=== PATIENT | female | born 1960 ===

== ENCOUNTER 2022-06-16 13:41 | Emergency (ER) | payer OTHER, SELFPAY ==
--- NOTE | ~2022-06-16 | XR_ITS ---
EXAMINATION: XR FINGER, LEFT CLINICAL INFORMATION: Second digit laceration COMPARISON: None TECHNIQUE: Two views of the left index finger. PA view of the hand. FINDINGS: Soft tissue swelling of the distal second digit. The bones are normal. No fracture. Alignment is anatomic. Joint spaces are maintained. No foreign body. XR/XR finger LT min 2V IMPRESSION: Soft tissue swelling. No acute fractures or foreign body.
--- NOTE | 2022-06-16 14:09 | ED.WOUNDLAC ---
HPI - Wound/Laceration General Chief Complaint: Wound/Laceration <Vero Roca CNP - Last Filed: 06/16/22 14:12> Stated Complaint: l index finger laceration <Vero Roca CNP - Last Filed: 06/16/22 14:12> Time Seen by Provider: 06/16/22 14:53 <Vero Roca CNP - Last Filed: 06/16/22 14:12> Source: patient <ROSAMARIA Rodriguez - Last Filed: 06/16/22 15:10> Mode of arrival: ambulatory <ROSAMARIA Rodriguez Last Filed: 06/16/22 15:10> Limitations: no limitations <ROSAMARIA Rodriguez Last Filed: 06/16/22 15:10> History of Present Illness HPI narrative: 62-year-old female presents to the ER for evaluation of a laceration on her left index finger. Patient states just before coming into the hospital she was cutting the carpus of her cooked turkey when the knife slipped and she cut the lateral aspect of her left index finger. There was immediate bleeding and pain. She was able to apply direct pressure with cessation of the bleeding. She is not on anticoagulation. She is able to fully extend and flex the finger. She denies any numbness or tingling. She reports a throbbing pain right where the injury occurred. <ROSAMARIA Rodriguez - Last Filed: 06/16/22 15:10> Onset (ago): minute(s) <ROSAMARIA Rodriguez Last Filed: 06/16/22 15:10> Extremity Location: left: hand (Index finger) <ROSAMARIA Rodriguez Last Filed: 06/16/22 15:10> Place: home <ROSAMARIA Rodriguez Last Filed: 06/16/22 15:10> Patient tetanus UTD: Yes <ROSAMARIA Rodriguez Last Filed: 06/16/22 15:10> Context: accidental <ROSAMARIA Rodriguez Last Filed: 06/16/22 15:10> Associated symptoms: pain <ROSAMARIA Rodriguez Last Filed: 06/16/22 15:10> Treatments prior to arrival: bandage <ROSAMARIA Rodriguez - Last Filed: 06/16/22 15:10> Related Data Home Medications: Home Medications Medication Instructions Recorded Confirmed azelaic acid 15 % topical gel topical 10/30/21 10/30/21 lorazepam 0.5 mg tablet 0.5 mg PO DAILY PRN 05/10/22 sertraline 100 mg tablet 150 mg PO DAILY 05/10/22 <Vero Roca CNP - Last Filed: 06/16/22 14:12> Allergies/Adverse Reactions: Allergies Allergy/AdvReac Type Severity Reaction Status Date / Time No Known Allergies Allergy Verified 05/10/22 10:29 <Vero Roca CNP - Last Filed: 06/16/22 14:12> Review of Systems Review of Systems: Constitutional: No Fever, No Chills Cardiovascular: No Chest Pain, No SOB Gastrointestinal: No Nausea, No Vomiting Musculoskeletal: + joint pain, No Myalgias Skin: +Skin Lesions, No rash Neuro: No Weakness, No Numbness, No Dizziness, No Headache Psych: + Anxiety/Panic, No Depression Heme/Lymph: No Bruising <ROSAMARIA Rodriguez - Last Filed: 06/16/22 15:10> PMFSH Past Medical History Medical History: Medical History (Updated 06/16/22 @ 15:10 by ROSAMARIA Rodriguez) History of COVID-19 History of herpes zoster History of tetanus, diphtheria, and acellular pertussis booster vaccination (Tdap) Premature menopause <Vero Roca CNP - Last Filed: 06/16/22 14:12> Surgical History: Surgical History (Updated 05/10/22 @ 10:41 by Vannessa Crabtree MD) History of bunionectomy Hx of section Hx of colonoscopy Hx of tonsillectomy <Vero Roca CNP - Last Filed: 06/16/22 14:12> Family History Family History: Family History (Updated 05/10/22 @ 10:45 by Vannessa Crabtree MD) Father Hypertension Prostate cancer Parkinson disease Mother Hypertension Diabetes Breast cancer Maternal Aunt Breast cancer <Vero Roca CNP - Last Filed: 06/16/22 14:12> Social History Social History: Social History Housing: House Patient Tobacco Use Status: Former Tobacco user (38 years ago) e-Cigarette/Vaping Use: Never Used Current occupational status: employed Cognitive needs: No Hearing needs: No Vision needs: Yes <Vero Roca CNP - Last Filed: 06/16/22 14:12> Physical Exam Vital Signs: Vital Signs: Last Vital Signs Pulse 90 06/16/22 14:11 Resp 18 06/16/22 14:11 Pulse Ox 97 06/16/22 14:11 O2 Del Method 06/16/22 14:11 BMI result Body Mass Index 27.0 <Vero Roca CNP - Last Filed: 06/16/22 14:12> Vital Signs: Last Vital Signs Pulse 90 06/16/22 14:11 Resp 18 06/16/22 14:11 Pulse Ox 97 06/16/22 14:11 O2 Del Method 06/16/22 14:11 BMI result Body Mass Index 27.0 <ROSAMAIRA Rodriguez - Last Filed: 06/16/22 15:10> Appearance: Alert. Oriented X3. No acute distress. HEENT: normal inspection CVS: Normal heart rate and rhythm. Pulses normal. Respiratory: No respiratory distress. Skin: Skin warm and dry. Normal skin color. Normal skin turgor. No rashes. Extremities: Left index finger with a 1.5 cm linear, superficial diagonal laceration over the lateral aspect of the PIP. No active bleeding. Normal range of motion of both the D IP and PIP. Neurovascularly intact distally. Neuro: Oriented X 3. No motor deficit. No sensory deficit. <ROSAMARIA Rodriguez - Last Filed: 06/16/22 15:10> Course Course Course Narrative: RME: Today while cutting turkey she sliced left index finger with a kitchen knife, being labeled with pressure and gauze. Reports tetanus vaccine to be updated within the last 5 years. Denies anticoagulant usage. States she is able to bend the finger. PE: linear laceration to left 2nd digit, radial aspect, clean margins, bleeding controlled Plan: XR finger, laceration repair <Vero Roca CNP - Last Filed: 06/16/22 14:12> Reevaluation(s) Reevaluation #1: X-rays negative. Wound was irrigated and deep structures are intact. It is superficial, amenable to skin glue and Steri-Strips. <ROSAMARIA Rodirguez - Last Filed: 06/16/22 15:10> Reevaluation #2: Wound closed with Dermabond and Steri-Strips, see procedure note. Dry sterile dressing was applied the patient was counseled on wound care and signs and symptoms of infection that should prompt urgent re-evaluation. Stable for discharge home. <ROSAMARIA Rodriguez - Last Filed: 06/16/22 15:10> Procedures Laceration Laceration 1: Site: hand <ROSAMARIA Rodriguez - Last Filed: 06/16/22 15:10> Side (If applicable): left <ROSAMARIA Rodriguez - Last Filed: 06/16/22 15:10> Description: linear <ROSAMARIA Rodriguez - Last Filed: 06/16/22 15:10> Depth: simple, single layer <ROSAMARIA Rodriguez Last Filed: 06/16/22 15:10> Pre-repair: wound explored, irrigated extensively and deep structures intact <ROSAMARIA Rodriguez - Last Filed: 06/16/22 15:10> Skin layer closed with: other (Dermabond and Steri-Strips) <ROSAMARIA Rodriguez - Last Filed: 06/16/22 15:10> Discharge Plan Discharge Clinical Impression: Finger laceration <Vero Roca CNP - Last Filed: 06/16/22 14:12> Patient Disposition: Home, Self-Care <Vero Roca CNP - Last Filed: 06/16/22 14:12> Instructions: Finger Laceration (ED) <Vero Roca CNP - Last Filed: 06/16/22 14:12> Additional Instructions: Do not get wet for 24 hours, after that you can briefly wash with soap and water then pat dry. The Steri-Strips and Dermabond will come off on their own. Do not peel them off. Once that edges started for a just trim the edge. Keep wound clean and covered. Do not submerge in water. If you develop signs of infection including increased pain, swelling, redness or drainage of pus come back to the ER for further evaluation. <Vero Roca CNP - Last Filed: 06/16/22 14:12> Prescriptions: No Action azelaic acid 15 % gel topical sertraline 100 mg tablet 150 mg PO DAILY lorazepam 0.5 mg tablet 0.5 mg PO DAILY PRN <Vero Roca CNP - Last Filed: 06/16/22 14:12>
[2022-06-16 14:11] VITALS: PULSE 90; RESP 18; O2SAT 97; BMI 27.0
== END 2022-06-16 15:27 | disposition home or self-care (01) ==
PROVIDERS: Emergency Provider Emergency Medicine; PCP Internal Medicine
DX: S61.211A Laceration without foreign body of left index finger without damage to nail, initial encounter (principal); W26.0XXA Contact with knife, initial encounter; Y93.G1 Activity, food preparation and clean up; Y92.010 Kitchen of single-family (private) house as the place of occurrence of the external cause; Y99.9 Unspecified external cause status
CPT/HCPCS: 12001; 73140; 99283

== ENCOUNTER 2022-08-17 08:59 | Outpatient (REF) | payer OTHER, SELFPAY ==
[2022-08-17 11:16] LABS: MANUAL DIFF FLAG NO
[2022-08-17 11:23] LABS: Basophils Absolute Auto 0.1 X10*3/uL (0.0-0.2); Basophils Percent Auto 0.8 % (0-2); Eosinophils Absolute Auto 0.1 X10*3/uL (0.0-0.4); Eosinophils Percent Auto 2.4 % (0-4); Hematocrit 40.5 % (37.0-47.0); Hemoglobin 12.8 g/dl (12.0-16.0); Imm Gran Abs Auto 0.04 X10*3/uL (0.00-0.03); Imm Gran Pct Auto 0.7 % (0.0-0.4); Lymphocytes Absolute Auto 1.5 X10*3/uL (1.2-4.9); Lymphocytes Percent Auto 24.8 % (20-40); Mean Corpuscular HGB Conc 31.6 g/dl (31.0-35.0); Mean Corpuscular Hemoglobin 27.6 pg (27.0-33.0); Mean Corpuscular Volume 87.3 fL (80.0-98.0); Mean Platelet Volume 9.5 fL (9.4-12.3); Monocytes Absolute Auto 0.4 X10*3/uL (0.1-1.2); Monocytes Percent Auto 7.5 % (2-11); Neutrophils Absolute Auto 3.8 x10*3/uL (2.0-8.3); Neutrophils Percent Auto 63.8 % (45-73); Platelet Count 318 X10*3/uL (160-400); Red Blood Count 4.64 X10*6/uL (4.20-5.50); Red Cell Distribution Width 13.6 % (11.0-16.0); White Blood Count 5.9 X10*3/uL (4.8-10.8)
[2022-08-17 11:49] LABS: Alanine Aminotransferase 18 U/L (0-31); Anion Gap 12 (12-20); Aspartate Amino Transferase 21 U/L (5-31); Blood Urea Nitrogen 14 mg/dL (9-16); Calcium 9.5 mg/dL (8.4-10.2); Carbon Dioxide 28 mmol/L (22-29); Chloride 104 mmol/L (96-108); Cholesterol 246 mg/dL; Estimated Glomerular Filt Rate > 60; Glucose Fasting 90 mg/dL (60-99); HDL Cholesterol 54 mg/dL; LDL Cholesterol Calculated 173 mg/dl; Potassium 4.9 mmol/L (3.3-5.1); Sodium 139 mmol/L (135-145); Triglycerides 97 mg/dL
[2022-08-17 12:11] LABS: TSH reflex Free T4 1.88 uIU/mL (0.32-4.0); Vitamin D 25-OH Total 30.8 ng/mL (>30)
== END 2022-08-17 09:00 | disposition home or self-care (01) ==
LOC: HO.HMGCLDS 08:59
PROVIDERS: Visit Provider Internal Medicine
DX: Z00.01 Encounter for general adult medical examination with abnormal findings (principal); E28.319 Asymptomatic premature menopause; F32.A Depression, unspecified; F41.9 Anxiety disorder, unspecified
CPT/HCPCS: 36415; 80048; 80061; 82306; 84443; 84450; 84460; 85025

== ENCOUNTER 2023-02-25 11:06 | Outpatient (AMB) | payer OTHER, SELFPAY ==
--- NOTE | 2023-02-25 11:30 | A.OFFPSYCH_ITS ---
Intake Intake Visit Reasons: depression Allergies No Known Allergies Allergy (Verified 05/10/22 10:29) Medication List - Last Reconciled 02/25/23 by Fabio Singh MD azelaic acid 15% topical levomefolate calcium 7.5 mg PO DAILY lorazepam 0.5 mg PO DAILY PRN sertraline 200 mg PO DAILY HPI- Psychiatric Chief Complaint: depression HPI Narrative: THE PATIENT HAS HAD SOME INCREASE IN ANXIETY AND DEPRESSIVE SYMPTOMS. CAN BE MORE PREOCCUPIED BROODING AT TIMES. 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 She has florid about how much it is taking from her and then also feels she needs to step up to help support him and this is taking somewhat of a toll Past Psychiatric History: hx recurrent dysphoria past panic dx Mental Status Exam Mental Status Exam Patient Appearance: Well Grooomed Patient Orientation: Person, Place, Time and Situation Level of Consciousness: Awake and Appropriate Mood Description: Depressed and Blunted Affect Description: Appropriate and Constricted Patient Cognition Impaired: No Ability to Follow Directions: Good Speech Pattern: Clear Memory Description: Intact Hallucinations: None Delusions: Not Present Thought Process: Intact and Goal Oriented Thought Content: positive for Goal Oriented, positive for Preoccupation, negative for Suicidal Ideation or negative for Homicidal Ideation Depressive Symptoms: Increased Anxiety, Loss of Int. in Activity, Increased Fatigue, Loss of Energy and Difficulty Concentrating Judgement: Good Judgement and Insight: Patient with some ongoing depressive and anxiety symptoms Assessment and Plan Assessment & Plan (1) Generalized anxiety disorder: Status: Acute Code(s): F41.1 - Generalized anxiety disorder (2) Major depressive disorder, recurrent episode, mild with anxious distress: Status: Acute Code(s): F33.0 - Major depressive disorder, recurrent, mild Plan Patient has a history of recurrent depression and anxiety. She has been feeling more male long colic symptoms over the past week 10 days. She and her have been under significant stress dealing with transition of her [id number] from [place] living nearby now and having recently fallen and requiring orthopedic surgery. This has but more stress on the family particularly her and herself at times. Has diff difficult boundary relationship at times feeling overly criticized and [place]. We did discuss increasing sertraline to 100 mg from 150 mg reviewed risks benefits side effects decreased back to 150 if not tolerated discussed the addition of L methyl folate 7.5 mg daily as an augmentation strategy. Lorazepam p.r.n. for occasional panic anxiety relaxation techniques patient benefit from daily walk finding sanctuary in different spaces enjoys gardening Medications: New lorazepam 0.5 mg PO DAILY PRN 14 tabs 2RF anxiety Counseling and coordination of Care Details-Self Mgmt counseling: Issues related to managing difficult situation with her [id number] and its impact on her and her and triggers for depressive symptoms Medication management counseling: Effectiveness and Dosing range Diagnosis and Prognosis Counseling: Impact of diagnosis on life functions, Problematic behaviors secondary to diagnosis and Adequacy of current interventions Details: I spent [38] minutes reviewing the record, seeing the patient and documenting in the medical record. Counseling provided to the patient/caregiver as outlined below. Addressed patient/caregiver concerns regarding current medication regime including effective adherence. Addressed patient/caregiver concerns regarding diagnosis and prognosis including accuracy of diagnosis, prognosis over time, impact of diagnosis. Addressed patient/caregiver concerns regarding impact of recent stressors. [facility] Medical History (Updated 03/25/23 @ 14:10 by Fabio Singh MD) Generalized anxiety disorder History of COVID-19 History of herpes zoster History of tetanus, diphtheria, and acellular pertussis booster vaccination (Tdap) Premature menopause Surgical History (Updated 05/10/22 @ 10:41 by Vannessa Crabtree MD) History of bunionectomy Hx of section Hx of colonoscopy Hx of tonsillectomy Family History (Updated 05/10/22 @ 10:45 by Vannessa Crabtree MD) Father Hypertension Prostate cancer Parkinson disease Mother Hypertension Diabetes Breast cancer Maternal Aunt Breast cancer Social History Housing: House Patient Tobacco Use Status: Former Tobacco user (38 years ago) e-Cigarette/Vaping Use: Never Used Current occupational status: employed Cognitive needs: No Hearing needs: No Vision needs: Yes Coding Level of Care Code Est Pt Level 3 (82412) Therapy 30m w/E&M (46721) Diagnoses Generalized anxiety disorder F41.1 Major depressive disorder, recurrent episode, mild with anxious distress F33.0
== END 2023-02-25 12:13 | disposition home or self-care (01) ==
LOC: HO.HOP 11:06
PROVIDERS: PCP Internal Medicine; Visit Provider Psychiatry & Neurology Psychiatry
DX: F41.1 Generalized anxiety disorder (principal); F33.0 Major depressive disorder, recurrent, mild
CPT/HCPCS: 90833; 99213

== ENCOUNTER → 2023-02-25 11:06 | Outpatient (BNVA) | payer OTHER, SELFPAY | PROVIDERS: PCP Internal Medicine; Visit Provider Psychiatry & Neurology Psychiatry ==

== ENCOUNTER 2023-04-17 14:37 | Outpatient (AMB) | payer OTHER, SELFPAY ==
--- NOTE | 2023-04-17 13:00 | MHC.OFFVISPS ---
Intake Intake Visit Reasons: depression Allergies No Known Allergies Allergy (Verified 05/10/22 10:29) Medication List - Last Reconciled 04/17/23 by Fabio Singh MD azelaic acid 15% topical lorazepam 0.5 mg PO DAILY PRN sertraline 200 mg (2 x 100 mg) PO DAILY 90 days HPI- Psychiatric Chief Complaint: depression HPI Narrative: The patient is feeling significantly better generally much more like herself. More assertive full range of motion back working Has been quite stable on sertraline 200 mg did not feel L methyl folate was helpful managing better with her and [id number] Past Psychiatric History: hx recurrent dysphoria past panic dx Mental Status Exam Mental Status Exam Narrative: Mental Status Exam Narrative: Appearance: Casually dressed Behavior: Cooperative appropriate psychomotor: Within normal limits Speech: Normal volume and prosody focused on feeling and powered Thought proccess logical and goal-directed Thought content: Future oriented no self-harming thoughts Mood: Euthymic Affect: Appropriate to mood full affect SI:denies HI:denies VH/AH:none Delusions: None Insight/judgment: Good insight and judgment Memory/cog: Intact Assessment and Plan Assessment & Plan (1) Major depression in full remission: Status: Acute Code(s): F32.5 - Major depressive disorder, single episode, in full remission (2) Generalized anxiety disorder: Status: Acute Code(s): F41.1 - Generalized anxiety disorder Plan Patient doing well continue plan of care continue sertraline L methyl folate discontinued patient does not feel that she has seasonal type depression follow-up for month Counseling and coordination of Care Details-Self Mgmt counseling: Better able to keep things in perspective Medication management counseling: Effectiveness, Dosing range and Duration Diagnosis and Prognosis Counseling: Adequacy of current interventions Details: I spent [28] minutes reviewing the record, seeing the patient and documenting in the medical record. Counseling provided to the patient/caregiver as outlined below. Addressed patient/caregiver concerns regarding current medication regime including effective adherence. Addressed patient/caregiver concerns regarding diagnosis and prognosis including accuracy of diagnosis, prognosis over time, impact of diagnosis. Addressed patient/caregiver concerns regarding impact of recent stressors. [facility] Medical History (Updated 04/29/23 @ 23:01 by Fabio Singh MD) Generalized anxiety disorder Premature menopause History of tetanus, diphtheria, and acellular pertussis booster vaccination (Tdap) History of COVID-19 History of herpes zoster Surgical History (Updated 05/10/22 @ 10:41 by Vannessa Crabtree MD) Hx of colonoscopy History of bunionectomy Hx of section Hx of tonsillectomy Family History (Updated 05/10/22 @ 10:45 by Vannessa Crabtree MD) Father Hypertension Prostate cancer Parkinson disease Mother Hypertension Diabetes Breast cancer Maternal Aunt Breast cancer Social History Housing: House Patient Tobacco Use Status: Former Tobacco user (38 years ago) e-Cigarette/Vaping Use: Never Used Current occupational status: employed Cognitive needs: No Hearing needs: No Vision needs: Yes Coding Level of Care Code Est Pt Level 4 (97041) Diagnoses Major depression in full remission F32.5 Generalized anxiety disorder F41.1
== END 2023-04-17 14:37 | disposition home or self-care (01) ==
LOC: HO.HOP 14:37
PROVIDERS: PCP Internal Medicine; Visit Provider Psychiatry & Neurology Psychiatry
DX: F32.5 Major depressive disorder, single episode, in full remission (principal); F41.1 Generalized anxiety disorder
CPT/HCPCS: 99214

== ENCOUNTER → 2023-04-17 14:37 | Outpatient (BNVA) | payer OTHER, SELFPAY | PROVIDERS: PCP Internal Medicine; Visit Provider Psychiatry & Neurology Psychiatry ==

== ENCOUNTER 2023-05-14 10:51 | Outpatient (AMB) | payer OTHER, SELFPAY ==
[2023-05-14 10:58] VITALS: BP 136/80; PULSE 79; O2SAT 98; BMI 29.0
--- NOTE | 2023-05-14 10:58 | A.OFFPC_ITS ---
Vital Signs 05/14/23 10:58 Height 4 ft 11 in Weight 143 lb 6 oz BMI 29.0 BP 136/80 Blood Pressure Location Rt brachial Position Sitting Pulse 79 Pulse Source Pulse Oximeter Pulse Oximetry (%) 98 Oxygen Delivery Method Room Air Intake Visit Reasons: PE Intake Note: pt is here for a PE pt got a letter for her colon screening but does not want to drink the drink she wants the cologuard pt says she will make appt for mammo and would like a referral for a bone scan pt has not had the flu vaccine Allergies No Known Allergies Allergy (Verified 05/15/23 11:37) Medication List - Last Reconciled 05/14/23 by Vannessa Crabtree MD azelaic acid 15% topical lorazepam 0.5 mg PO DAILY PRN sertraline 200 mg (2 x 100 mg) PO DAILY 90 days Tobacco use date assessed: 05/14/23 Fall risk assessment: No Falls in past year Last assessed Fall Risk: 05/14/23 Dental Screening Dental Screen Date: 05/14/23 Did you have a dental visit in the last 12 months?: Yes Did you have a dental problem in the last 6 months where you did not have access to dental care?: No Was dental information given to patient?: Patient has dentist HPI PE HPI Details 63-year-old lady here today for physical exam. She has generalized anxiety disorder currently stable controlled on present treatment, followed by Dr. Singh. She has premature menopause, overdue for a bone density scan, and states that patient will schedule own mammogram, had it done last year at [facility]. 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 Tolentino but has had a falling out. She has been complaining of vaginal dryness, not relieved with taking Estrace cream, and complains of dyspareunia. Has history of dyslipidemia, currently diet controlled. She is due for her on a colon cancer screening, last colonoscopy was done by Dr. Gallagher in 2011 which showed negative findings, would like, ever to do the Cologuard testing instead of colonoscopy. [facility] Medical History Family history of breast cancer in mother Atrophic vaginitis Dyspareunia in female Dyslipidemia (high LDL; low HDL) Generalized anxiety disorder Premature menopause History of tetanus, diphtheria, and acellular pertussis booster vaccination (Tdap) History of COVID-19 History of herpes zoster Surgical History Hx of colonoscopy History of bunionectomy Hx of section Hx of tonsillectomy Family History Father Hypertension Prostate cancer Parkinson disease Mother Hypertension Diabetes Breast cancer Maternal Aunt Breast cancer Social History Housing: House Patient Tobacco Use Status: Former Tobacco user (38 years ago) e-Cigarette/Vaping Use: Never Used Current occupational status: employed Cognitive needs: No Hearing needs: No Vision needs: Yes Questionnaire PHQ-9 Over the last 2 weeks, how often have you been bothered by any of the following problems? 1. Little interest or pleasure in doing things: several days 2. Feeling down, depressed, or hopeless: not at all 3. Trouble falling or staying asleep, or sleeping too much: not at all 4. Feeling tired or having little energy: not at all 5. Poor appetite or overeating: not at all 6. Feeling bad about yourself - or that you are a failure or have let yourself or your family down: not at all 7. Trouble concentrating on things, such as reading the newspaper or watching t elevision: not at all 8. Moving or speaking so slowly that other people could have noticed. Or the opposite - being so fidgety or restless that you have been moving around a lot more than usual: not at all 9. Thoughts that you would be better off or of hurting yourself in some way: not at all Total score: 1 Depression Screening Interpretation: Positive (Controlled on present treatment) Depression Screening Follow-up: Existing condition, In treatment and Community Mental Health Worker F/U (Followed by Dr. Singh) Depression Screening Done: Yes 00332 - PHQ-9 Billing: Yes Source: Developed by Drs. Ru Soto, Yue Stern, Jose Whitney and colleagues, with an educational elizabeth from [employer]. Thrive Questionnaire Date Thrive assessed: 05/14/23 What is your living situation today?: I have a steady place to live Within the past 12 months, did the food you bought not last and you didn't have the money to get more?: Never true Within the past 12 months, did you worry whether your food would run out before you got money to buy more?: Never true Do you have trouble paying for medicines?: No Do you have trouble getting transportation to medical appointments?: No Do you have trouble paying your heating and electricity bill?: No Do you have trouble taking care of your child, family member or friend?: No Do you have trouble with day-to-day activities such as bathing, preparing meals, shopping, managing finances, etc.?: No Are you currently unemployed and looking for a job?: No Are you interested in more education?: No Please select the resources that you would like help with: None AUDIT C Alcohol Use Questionnaire (AUDIT-C) 1. How often do you have a drink containing alcohol?: 2-4 times a month 2. How many drinks containing alcohol do you have on a typical day when you are drinking?: 1 or 2 3. How often do you have six or more drinks on one occasion?: Never Total Score: 2 Score Reviewed/Action Taken: Yes OUSMANE-7 AMB Questionnaire OUSMANE-7 Date OUSMANE - 7 assessed: 05/14/23 Feeling nervous, anxious, or on edge: 0 = Not at all Not being able to stop or control worryin = Not at all Worrying too much about different things: 0 = Not at all Trouble relaxin = Not at all Being so restless that it is hard to sit still: 0 = Not at all Becoming easily annoyed or irritable: 0 = Not at all Feeling afraid as if something awful might happen: 0 = Not at all Total OUSMANE-7 score (0-4 normal; 5-9 mild; 10-14 moderate; 15-21 severe): 0 Source: Developed by Drs. Ru Soto, Yue Stern, Jose Whitney and colleagues, with an educational elizabeth from [employer]. OUSMANE-7 Assessment Billing OUSMANE-7 Assessment Tool: OUSMANE-7 Assessment 76004 Review of Systems Const Denies body aches, Denies fatigue, Denies fever(s), Denies headache(s) and Denies weakness Eyes Details: goes to [facility] , has beginning cataracts and suspect glaucoma Denies change in vision, Denies eye discharge and Denies itchy eyes ENT Reports dizziness, Denies headache(s), Denies nasal congestion, Denies nasal discharge and Denies sore throat Card Denies chest pain, Denies lightheadedness, Denies palpitations and Denies dyspnea Resp Denies chest congestion, Denies cough, Denies dyspnea and Denies wheezing GI Denies abdominal pain, Denies change in bowel habits and Denies heartburn Denies hematuria, Denies urinary frequency, Denies difficulty voiding, Reports hot flashes, Denies dysuria, Denies prolapse symptoms, Denies urinary incontinence and Denies urinary urgency Musc Reports no additional complaints Skin/Breast Details: sees [facility] , has had several precancerous lesions removed on her face Denies breast pain, Denies breast mass, Denies lesions and Denies rash Neuro Reports dizziness, Denies headache(s) and Denies weakness Psych Details: sees Dr Kayode Singh Reports no additional complaints and Reports as per HPI Endo Denies fatigue, Denies polydipsia, Denies polyuria and Denies palpitations Addi/Lymph Denies easy bruising Aller/Immun Denies itchy eyes, Denies seasonal rhinorrhea and Denies wheezing Physical exam (Primary Care) Vital Signs: Last Vital Signs Pulse 79 05/14/23 10:58 BP 136/80 05/14/23 10:58 Pulse Ox 98 05/14/23 10:58 Oxygen Delivery Method Room Air 05/14/23 10:58 BMI result Body Mass Index 29.0 Tobacco/Smoking Status: Tobacco use Status Tobacco use date assessed 05/14/23 05/14/23 11:02 Patient Tobacco Use Status Former Tobacco user (38 05/14/23 11:02 years ago) e-Cigarette/Vaping Use Never Used 05/14/23 11:02 Depression Screening Interpretation: Positive (Controlled on present treatment) Depression Screening Follow-up: Existing condition, In treatment and Community Mental Health Worker F/U (Followed by Dr. Singh) Thrive Assessment: Date of Thrive Assessment Date Thrive assessed 05/10/22 05/14/23 11:02 Const Other: Alert oriented x3, no acute distress noted ambulatory with normal gait Orientation/consciousness: patient oriented x3 [facility] Head: Yes normocephalic and Yes atraumatic Ears: hearing grossly normal bilaterally and external ears normal General nose exam: Normal external nose present Face and sinus: Yes normal facial exam and Yes face symmetric Mouth: Normal oral and palatal mucosa present, oropharynx normal and moist mucous membranes Eyes General: appearance normal, both eyes and all related structures Conjunctivae: conjunctivae normal Sclerae: sclerae normal Pupils: Equal, round and reactive pupils present EOM: EOMs intact bilaterally Neck Other: Thyroid nonpalpable nontender to palpation Neck: Yes full ROM, Yes no lymphadenopathy and Yes supple Chest Chest palpation & inspection: normal inspection of the chest Breast/axilla palpation: normal palpation of the breasts Resp Auscultation: clear to auscultation bilaterally Cardio Other: S1-S2 present regular rate and rhythm Bruits: no abdominal aortic bruits GI Inspection: Yes normal to inspection Palpation (GI): No Abdominal aortic bruit present, Soft to palpation, nontender, no guarding and no masses Auscultation: normal bowel sounds General: Yes no CVA tenderness Back/Spine/Pelvis Back: no CVA tenderness and No back tenderness Skin General skin exam: no rashes or lesions noted Neuro General: patient oriented x3, gait normal, tone normal, moves all extremities, Normal light touch and pain sensation, no focal motor deficits and CN's II-XI intact bilaterally Cranial nerves: Yes Equal, round and reactive pupils present Extrem General: Yes full ROM, Yes no joint enlargement, Yes no clubbing, cyanosis or edema, Yes no calf tenderness and Yes normal gait Psych Appearance: grossly normal and well kempt Mental Status: mental status grossly normal Speech and movement: Normal speech and movement present Affect: normal affect Attitude: cooperative Thought process: Normal thought process present Immunizations pneumoc 20-bryant conj-dip cr(PF) 0.5 mL IM syringe Performing Provider: Vannessa Crabtree MD Performing Location: [facility] Administered by: Delia Prince CMA on 05/14/23 12:01 Dose Route Admin Location Dispensed Lot Number Expiration Date NDC Hamper Maker 0.5 mL IM Left Deltoid 0.5 mL [id number] 05/21/24 3512-9772-47 [employer] VIS Given Date VIS Provided VIS Publication Date 05/14/23 Single Vaccine 21 Eligibility Eligibility Date Funding Source Not VFC Eligible 05/14/23 Private Results Reviewed Results Reviewed: SPEC : [id number] JEFF: 08/17/22 STATUS: COMP REQ : [id number] RECD: 08/17/[address]: Vannessa Crabtree MD COMP: 08/17/22 ENTERED: 08/17/[address]: ORDERED: CBC Auto Diff Test Result Flag Reference Site WBC 5.9 4.8-10.8 X10*3/uL RBC 4.64 4.20-5.50 X10*6/uL HGB 12.8 12.0-16.0 g/dl HCT 40.5 37.0-47.0 % MCV 87.3 80.0-98.0 fL MCH 27.6 27.0-33.0 pg MCHC 31.6 31.0-35.0 g/dl RDW 13.6 11.0-16.0 % PLT 318 160-400 X10*3/uL RUN: 05/15/23 1155 PAGE 1 [facility] [address] [place] [id number] Medical Artist: Jared Franco M.D. Specimen Inquiry Name: Nikki Obrien Age/Sex: 62/F : 1960 Unit#: [id number] Attend Dr: Vannessa Crabtree MD Re08/17/22 Status: DEP [facility]F [facility] Disch: SPEC : [id number] JEFF: 08/17/22 STATUS: COMP REQ : [id number] RECD: 08/17/[address]: Vannessa Crabtree MD COMP: 01/27/23-1211 ENTERED: 08/17/22-901 [facility] DR: ORDERED: Met Prof Fast, AST, ALT, Lipid Panel, Vitamin D 25-OH, TSH Rflx Test Result Flag Reference Site Sodium 139 135-145 mmol/L Potassium 4.9 3.3-5.1 mmol/L CL 104 96-108 mmol/L CO2 28 22-29 mmol/L Gap 12 12-20 BUN 14 9-16 mg/dL Creat 0.75 0.5-1.4 mg/dL EGFR > 60 NOTE: For -[place] individuals, multiply the result by 1.210. Chronic Kidney Disease: Estimated GFR < 60 mL/min/1.73m2 Severe Kidney Disease: Estimated GFR < 15 mL/min/1.73m2 FBS 90 60-99 mg/dL CA 9.5 8.4-10.2 mg/dL AST (GOT) 21 5-31 U/L ALT (GPT) 18 0-31 U/L Triglyceride 97 mg/dL Desirable Triglyceride: less than 150 mg/dL Borderline High Triglyceride 150-199 mg/dL High Triglyceride: 200-499 mg/dL Very High Triglyceride: greater than or equal to 5OO mg/dL Chol 246 mg/dL Desirable Cholesterol: less than 200 mg/dL Borderline High Cholesterol: 200-239 mg/dL High Cholesterol: greater than 239 mg/dL LDL Calculated 173 mg/dl Desirable LDL: less than 100 mg/dL Near Optimal/Above Optimal LDL: 110-129 mg/dL Borderline High LDL: 130-159 mg/dL High LDL: 160-189 mg/dL Very High LDL: greater than or equal to 190 mg/dL HDL 54 mg/dL Desirable HDL: greater than 40 mg/dL Note: This HDL assay may give artificially low results in patients with liver disease. Vit D 25-OH Tot 30.8 >30 ng/mL Health Based Reference Values* < 20 ng/mL Deficient 20-30 ng/mL Insufficient > 30 ng/mL Sufficient Assessment and Plan Assessment & Plan (1) Annual visit for general adult medical examination with abnormal findings: Code(s): Z00.01 - Encounter for general adult medical examination with abnormal findings Plan: Will check appropriate labs. Continue with regular dental visit every 6 months and regular eye exams, at least every 2 years. Take adequate calcium in diet and vitamin-D 3 at 2000 IU per cap once a day, in addition to weight-bearing exercises to help maintain good muscle tone and weight control. Instructed to do self-breast exam, and continue to get yearly mammogram, ordered also bone density scan to be done together with her mammogram, patient requesting to go to [facility] where she has had her previous scans done.. Prevnar 20 given today, reminded to get her COVID booster and her flu shot. Cologuard testing ordered for colon cancer screening (2) Osteoporosis screening: Code(s): Z13.820 - Encounter for screening for osteoporosis Plan: Bone Density scan ordered, to be done together with her screening mammogram at [facility] per patient request. Continue staying active, do regular weight- bearing exercise, take calcium from dietary sources and continue taking vitamin- D 3 supplements at least 2000 units daily (3) Dyslipidemia (high LDL; low HDL): Code(s): E78.5 - Hyperlipidemia, unspecified Plan: Reviewed recent fasting lipid profile with patient with elevated LDL cholesterol on last check . Stressed importance of following a low-cholesterol diet and regular exercise, at least 30 minutes 3 to 4 times a week. Advised patient to make healthy food choices, eat more fruits, vegetables, whole grains, wild caught fish and low-fat dairy. Limit amount of meat and fried or fatty food products, as well as processed foods and fast foods. . (4) Generalized anxiety disorder: Code(s): F41.1 - Generalized anxiety disorder Plan: Stable controlled on present treatment, followed by Dr. 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 Orders: Orders MM screening mammo BI 05/14/23 E28.319 - Asymptomatic premature menopause, Z12.31 - Encounter for screening mammogram for malignant neoplasm of breast, Z13.820 - Encounter for screening for osteoporosis Basic Metabolic Panel Fasting 05/14/23 E28.319 - Asymptomatic premature menopause, E78.5 - Hyperlipidemia, unspecified, F41.1 - Generalized anxiety disorder, Z00.01 - Encounter for general adult medical examination with abnormal findings Vitamin D 25-OH Total 05/14/23 E28.319 - Asymptomatic premature menopause, E78.5 - Hyperlipidemia, unspecified, F41.1 - Generalized anxiety disorder, Z00.01 - Encounter for general adult medical examination with abnormal findings Pneumococcal 20 Immunization 05/14/23 Z23 - Encounter for immunization XR DEXA axial skeleton 05/14/23 E28.319 - Asymptomatic premature menopause, Z12.31 - Encounter for screening mammogram for malignant neoplasm of breast, Z13.820 - Encounter for screening for osteoporosis Lipid Panel 05/14/23 E28.319 - Asymptomatic premature menopause, E78.5 - Hyperlipidemia, unspecified, F41.1 - Generalized anxiety disorder, Z00.01 - Encounter for general adult medical examination with abnormal findings Alanine Aminotransferase 05/14/23 E28.319 - Asymptomatic premature menopause, E78.5 - Hyperlipidemia, unspecified, F41.1 - Generalized anxiety disorder, Z00.01 - Encounter for general adult medical examination with abnormal findings Aspartate Amino Transferase 05/14/23 E28.319 - Asymptomatic premature menopause, E78.5 - Hyperlipidemia, unspecified, F41.1 - Generalized anxiety disorder, Z00.01 - Encounter for general adult medical examination with abnormal findings Referrals Cologuard Test Z12.11 - Encounter for screening for malignant neoplasm of colon, Z12.12 - Encounter for screening for malignant neoplasm of rectum [facility] Referral N94.10 - Unspecified dyspareunia, N95.2 - Postmenopausal atrophic vaginitis, Z80.3 - Family history of malignant neoplasm of breast Coding Level of Care Code Est Pt Prev Care >65y(01538) Diagnoses Annual visit for general adult medical examination with abnormal findings Z00.01 Osteoporosis screening Z13.820 Dyslipidemia (high LDL; low HDL) E78.5 Generalized anxiety disorder F41.1 Premature menopause E28.319 Atrophic vaginitis N95.2 Dyspareunia in female N94.10 Additional Codes OUSMANE-7 Assessment Billing - OUSMANE-7 Assessment Tool: OUSMANE-7 Assessment 52522 ([id number])
== END 2023-05-14 11:59 | disposition home or self-care (01) ==
PROVIDERS: Visit Provider Internal Medicine
DX: Z23 Encounter for immunization (principal)
CPT/HCPCS: 90471; 90677; 99397

== ENCOUNTER 2023-06-19 09:57 | Outpatient (REF) | payer OTHER, SELFPAY ==
[2023-06-19 14:11] LABS: Alanine Aminotransferase 13 U/L (0-31); Anion Gap 10 (12-20); Aspartate Amino Transferase 19 U/L (5-31); Blood Urea Nitrogen 13 mg/dL (9-16); Calcium 9.9 mg/dL (8.4-10.2); Carbon Dioxide 30 mmol/L (22-29); Chloride 105 mmol/L (96-108); Cholesterol 261 mg/dL (<200); Estimated Glomerular Filt Rate > 60; Glucose Fasting 87 mg/dL (60-99); HDL Cholesterol 60 mg/dL (>40); LDL Cholesterol Calculated 189 mg/dL (<100); Potassium 4.6 mmol/L (3.3-5.1); Sodium 140 mmol/L (135-145); Triglycerides 64 mg/dL (<150)
[2023-06-19 14:13] LABS: Vitamin D 25-OH Total 74.4 ng/mL (>30)
== END 2023-06-19 09:58 | disposition home or self-care (01) ==
LOC: HO.HMGCLDS 09:57
PROVIDERS: PCP Internal Medicine; Visit Provider Internal Medicine
DX: Z00.01 Encounter for general adult medical examination with abnormal findings (principal); E28.319 Asymptomatic premature menopause; F41.1 Generalized anxiety disorder; E78.5 Hyperlipidemia, unspecified
CPT/HCPCS: 36415; 80048; 80061; 82306; 84450; 84460

== ENCOUNTER 2023-07-16 12:21 | Outpatient (AMB) | payer OTHER, SELFPAY ==
--- NOTE | 2023-07-16 14:51 | AM.OFFWIN_ITS ---
Intake Vital Signs 07/16/23 14:56 Height 4 ft 11 in BP 130/82 Blood Pressure Location Rt brachial Position Sitting Pulse 88 Pulse Source Pulse Oximeter Temp 99.8 F Temp Source Temporal Artery Scan Pulse Oximetry (%) 98 Intake Visit Reasons: EP cough 1 week (masked) Intake Note: pt is here for c/o dry cough 1x week with low grade fever Patient Tobacco Use Status: Former Tobacco user (38 years ago) Allergies No Known Allergies Allergy (Verified 07/16/23 15:25) Medication List - Last Reconciled 07/16/23 by Saman Irene MD lorazepam 0.5 mg PO DAILY PRN sertraline 200 mg (2 x 100 mg) PO DAILY 90 days Do you need a note to return to daycare/school/sports/work: Yes HPI EP cough 1 week (masked) HPI Details Patient presents for a sick visit. Reporting symptoms of sinus congestion, sore throat and difficulty swallowing. Low-grade fever. No family member is sick. No recent travel. Patient reports symptoms of malaise and fatigue. [facility] Medical History Family history of breast cancer in mother Atrophic vaginitis Dyspareunia in female Dyslipidemia (high LDL; low HDL) Generalized anxiety disorder Premature menopause History of tetanus, diphtheria, and acellular pertussis booster vaccination (Tdap) History of COVID-19 History of herpes zoster Surgical History Hx of colonoscopy History of bunionectomy Hx of section Hx of tonsillectomy Family History Father Hypertension Prostate cancer Parkinson disease Mother Hypertension Diabetes Breast cancer Maternal Aunt Breast cancer Social History Housing: House Patient Tobacco Use Status: Former Tobacco user (38 years ago) e-Cigarette/Vaping Use: Never Used Current occupational status: employed Cognitive needs: No Hearing needs: No Vision needs: Yes Physical Exam Vital Signs: Last Vital Signs Temp 99.8 F 07/16/23 14:56 Pulse 88 07/16/23 14:56 BP 130/82 07/16/23 14:56 Pulse Ox 98 07/16/23 14:56 Const General: cooperative and healthy appearing Nutritional Appearance: well nourished Orientation/consciousness: patient oriented x3 Limitations: no limitations HEENT Head: Yes normal to inspection Eyes General: appearance normal, both eyes and all related structures Neck Neck: Yes normal visual inspection Chest Chest palpation & inspection: normal palpation of entire chest wall Resp Effort & Inspection: normal respiratory effort Neuro General: patient oriented x3 Assessment & Plan Assessment & Plan (1) Upper respiratory tract infection: Code(s): J06.9 - Acute upper respiratory infection, unspecified Plan: Antibiotics ordered. Increase fluid intake. Tylenol for aches and pains. If symptoms worsen, follow-up here for a recheck. Coding Level of Care Code Est Pt Level 3 (08303) Diagnoses Upper respiratory tract infection J06.9
[2023-07-16 14:56] VITALS: BP 130/82; PULSE 88; TEMP 37.7; O2SAT 98
== END 2023-07-16 15:37 | disposition home or self-care (01) ==
PROVIDERS: PCP Internal Medicine; Visit Provider Internal Medicine
DX: J06.9 Acute upper respiratory infection, unspecified (principal)
CPT/HCPCS: 99213

== ENCOUNTER 2023-08-08 08:27 | Outpatient (AMB) | payer OTHER, SELFPAY ==
[2023-08-08 08:33] VITALS: BMI 28.3
--- NOTE | 2023-08-08 08:33 | A.OFFVIS_ITS ---
Intake Vital Signs 08/08/23 08:33 Height 4 ft 11 in Weight 140 lb BMI 28.3 Intake Visit Reasons: New patient Dyspareunia, atrophic vaginitis Product Support Representative: Product Support Representative Present (Leanne) Allergies No Known Allergies Allergy (Verified 08/08/23 08:33) HPI HPI Comments History of Present Illness Details Patient is here with concerns of vaginal pain during intimacy. She reports early menopause at age 36. She was not placed on any hormone replacement therapy at the time. 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 She reports using Vagifem in the past but stopped due to burning. She also remembers the she had an endometrial biopsy and was told that there was something concerning with her ovaries, follow-up ultrasound did not indicate per patient anything was a concern at that time. Family history mother with breast cancer (BRCA negative) in aunts with breast and ovarian cancer. She reports her Pap smears were normal in the past. 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 Patient had requested in April 2023 for her records to be sent from Dr. Tolentino was office, they are not here at today for the visit. [facility] Medical History Family history of breast cancer in mother Atrophic vaginitis Dyspareunia in female Dyslipidemia (high LDL; low HDL) Generalized anxiety disorder Premature menopause History of tetanus, diphtheria, and acellular pertussis booster vaccination (Tdap) History of COVID-19 History of herpes zoster Surgical History Hx of colonoscopy History of bunionectomy Hx of section Hx of tonsillectomy Family History Father Hypertension Prostate cancer Parkinson disease Mother Hypertension Diabetes Breast cancer Maternal Aunt Breast cancer Ovarian cancer Social History Housing: House Alcohol intake: current Alcohol intake frequency: holidays/special occasions only Patient Tobacco Use Status: Former Tobacco user (38 years ago) e-Cigarette/Vaping Use: Never Used Current occupational status: employed Sexual orientation: Straight/Heterosexual Gender identity: Female Cognitive needs: No Hearing needs: No Vision needs: Yes Female Reproductive History Menstrual Menopause type: natural Total pregnancies: 2 Full term: 2 Number of Living Children: 2 Review of Systems Const All systems reviewed & are unremarkable except as noted in HPI and below Physical Exam Vital Signs: BMI result Body Mass Index 28.3 Const General: cooperative, healthy appearing and no acute distress Orientation/consciousness: patient oriented x3 GI Inspection: Yes normal to inspection Palpation (GI): Soft to palpation and Other GI palpation findings present (Nontender) Rectal Exam - Female: visual inspection normal Other: Tense with exam. Architectural changes with thinning and moderate atrophic change General: Yes bladder normal to palpation External Female Exam: normal appearance of the urethra Speculum Exam - Vagina: normal appearance of the vagina, normal palpation, normal vaginal discharge and vagina atrophic Speculum Exam - Cervix: normal appearance of the cervix, normal palpation and Other cervical findings present (Bled slightly with Pap) Bimanual exam- vagina & uterus: normal bimanual exam, normal palpation, uterine size normal, bladder normal to palpation, normal palpation, uterine shape normal and non-tender Bimanual Exam- Adnexa, other: normal adnexae Neuro General: patient oriented x3 Assessment & Plan Assessment & Plan (1) Atrophic vaginitis: Code(s): N95.2 - Postmenopausal atrophic vaginitis (2) Gynecologic exam normal: Code(s): Z01.419 - Encounter for gynecological examination (general) (routine) without abnormal findings Plan Discussed: Treatment options initially with Replens here, use benefits. Reviewed lubricant use when intimate and needing additional moisturization. Role of vaginal estrogens. Plan is to try the Replens follow-up in 2.5 months or sooner as needed. Advise spotting slightly from today's exam was normal but any postmenopausal bleeding in the future would not be considered to be normal and she is advised to call immediately for evaluation. 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 Plan review at her next visit. Advised the patient to call that practice until the records are here. Pap screening today. All of her questions and concerns were addressed to the best of my ability and shared decision making. She is agreeable to the plan of care. Orders: Orders Pap Smear Today Z01.419 - Encounter for gynecological examination (general) (routine) without abnormal findings Coding Level of Care Code New Pt Level 3 (87587) Diagnoses Atrophic vaginitis N95.2 Gynecologic exam normal Z01.419 Comment unsure to code for chief mechanical engineer exam/ or LOS prob visit
== END 2023-08-08 09:43 | disposition home or self-care (01) ==
PROVIDERS: PCP Internal Medicine; Visit Provider Advanced Practice Midwife
DX: N95.2 Postmenopausal atrophic vaginitis (principal); Z01.419 Encounter for gynecological examination (general) (routine) without abnormal findings
CPT/HCPCS: 99203

== ENCOUNTER 2023-08-08 08:27 | Outpatient (REF) | payer OTHER, SELFPAY ==
[2023-08-10 04:49] LABS: HPV mRNA E6/E7 rflx Not Detected (Not Detected)
== END 2023-08-08 08:28 | disposition home or self-care (01) ==
LOC: HO.LNP 08:27
PROVIDERS: PCP Internal Medicine; Visit Provider Advanced Practice Midwife
DX: Z01.419 Encounter for gynecological examination (general) (routine) without abnormal findings (principal); Z11.51 Encounter for screening for human papillomavirus (HPV); N95.2 Postmenopausal atrophic vaginitis
CPT/HCPCS: 87624; 88142

== ENCOUNTER 2024-01-08 11:12 | Outpatient (AMB) | payer OTHER, SELFPAY ==
--- NOTE | 2024-01-08 11:28 | MHC.OFFVISPS ---
Intake Intake Visit Reasons: depression Allergies No Known Allergies Allergy (Verified 08/08/23 08:33) Medication List - Last Reconciled 01/08/24 by Fabio Singh MD cholecalciferol (vitamin D3) 125 mcg PO DAILY lorazepam 0.5 mg PO DAILY PRN multivitamin 1 tab PO DAILY omega [id number] oil 1,000 mg (120 mg-180 mg) (Fish Oil) 1 cap PO DAILY sertraline 200 mg (2 x 100 mg) PO DAILY 90 days HPI- Psychiatric Chief Complaint: depression HPI Narrative: Patient generally has been feeling better issues have been more stable regarding stress with her and managing issues in the family with her [id number]. Continues to work part-time able to concentrate able to enjoy things feeling more stable Past Psychiatric History: hx recurrent dysphoria past panic dx Mental Status Exam Mental Status Exam Narrative: Mental Status Exam Narrative: Appearance: Casually dressed Behavior: Cooperative appropriate psychomotor: Within normal limits Speech: Normal volume and prosody focused on feeling and powered Thought proccess logical and goal-directed Thought content: Future oriented no self-harming thoughts Mood: Euthymic Affect: Appropriate to mood full affect SI:denies HI:denies VH/AH:none Delusions: None Insight/judgment: Good insight and judgment Memory/cog: Intact Assessment and Plan Assessment & Plan (1) Generalized anxiety disorder: Status: Acute Code(s): F41.1 - Generalized anxiety disorder (2) Major depression, recurrent, full remission: Status: Acute Code(s): F33.42 - Major depressive disorder, recurrent, in full remission Plan Patient generally has been feeling significantly better not as anxious and worried as previously feels more centered continues to work part-time which has been quite helpful for her generally continues on sertraline 200 mg which has been effective dose occasional use of lorazepam does worry somewhat about her but manageable follow-up 4 months Medications: Refilled sertraline 200 mg (2 x 100 mg) PO DAILY 180 tabs 1RF 90 days lorazepam 0.5 mg PO DAILY PRN 15 tabs 3RF anxiety Counseling and coordination of Care Details-Self Mgmt counseling: Issues related to family stress Medication management counseling: Effectiveness and Side effects Diagnosis and Prognosis Counseling: Adequacy of current interventions Details: I spent [33] minutes reviewing the record, seeing the patient and documenting in the medical record. Counseling provided to the patient/caregiver as outlined below. Addressed patient/caregiver concerns regarding current medication regime including effective adherence. Addressed patient/caregiver concerns regarding diagnosis and prognosis including accuracy of diagnosis, prognosis over time, impact of diagnosis. Addressed patient/caregiver concerns regarding impact of recent stressors. [facility] Medical History Family history of breast cancer in mother Atrophic vaginitis Dyspareunia in female Dyslipidemia (high LDL; low HDL) Generalized anxiety disorder Premature menopause History of tetanus, diphtheria, and acellular pertussis booster vaccination (Tdap) History of COVID-19 History of herpes zoster Surgical History Hx of colonoscopy History of bunionectomy Hx of section Hx of tonsillectomy Family History Father Hypertension Prostate cancer Parkinson disease Mother Hypertension Diabetes Breast cancer Maternal Aunt Breast cancer Ovarian cancer Social History Housing: House Alcohol intake: current Alcohol intake frequency: holidays/special occasions only Patient Tobacco Use Status: Former Tobacco user (38 years ago) e-Cigarette/Vaping Use: Never Used Current occupational status: employed Sexual orientation: Straight/Heterosexual Gender identity: Female Cognitive needs: No Hearing needs: No Vision needs: Yes Coding Level of Care Code Est Pt Level 4 (33349) Diagnoses Generalized anxiety disorder F41.1 Major depression, recurrent, full remission F33.42
== END 2024-01-08 11:38 | disposition home or self-care (01) ==
LOC: HO.HOP 11:12
PROVIDERS: PCP Internal Medicine; Visit Provider Psychiatry & Neurology Psychiatry
DX: F41.1 Generalized anxiety disorder (principal); F33.42 Major depressive disorder, recurrent, in full remission
CPT/HCPCS: 99214

== ENCOUNTER → 2024-01-08 11:12 | Outpatient (BNVA) | payer OTHER, SELFPAY | PROVIDERS: PCP Internal Medicine; Visit Provider Psychiatry & Neurology Psychiatry ==

== ENCOUNTER 2024-02-27 07:23 | Outpatient (AMB) | payer OTHER, SELFPAY ==
[2024-02-27 07:30] VITALS: BP 112/70; BMI 28.3
--- NOTE | 2024-02-27 07:30 | A.OFFVIS_ITS ---
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 The patient had early menopause has 1 episodes of vaginal bleeding and underwent endometrial biopsy which according to her was negative for endometrial hyperplasia and/or malignancy, no reports available. Also there was a concern regarding ovarian pathology ultrasound was negative , reports available according to the patient the was no concerns. Since then the patient has been doing well with no compla ints no vaginal bleeding pelvic pain or any other complaints. Last co testing was in 08/14 was negative last mammogram was in 07/13 BI-RADS 1. [facility] Medical History Family history of breast cancer in mother Atrophic vaginitis Dyspareunia in female Dyslipidemia (high LDL; low HDL) Generalized anxiety disorder Premature menopause History of tetanus, diphtheria, and acellular pertussis booster vaccination (Tdap) History of COVID-19 History of herpes zoster Surgical History Hx of colonoscopy History of bunionectomy Hx of section Hx of tonsillectomy Family History Father Hypertension Prostate cancer Parkinson disease Mother Hypertension Diabetes Breast cancer Maternal Aunt Breast cancer Ovarian cancer Social History Housing: House Alcohol intake: current Alcohol intake frequency: holidays/special occasions only Patient Tobacco Use Status: Former Tobacco user (38 years ago) e-Cigarette/Vaping Use: Never Used Current occupational status: employed 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 Sexual orientation: Straight/Heterosexual Gender identity: Female Cognitive needs: No Hearing needs: No Vision needs: Yes Female Reproductive History Menstrual Total pregnancies: 2 Full term: 2 Number of Living Children: 2 Date of last pap smear: 08/08/23 Date of Mammogram: 07/18/23 Review of Systems Const All systems reviewed & are unremarkable except as noted in HPI and below Reports as per HPI and Reports no additional complaints GI Reports no additional complaints Reports no additional complaints Physical Exam Vital Signs: Last Vital Signs BP 112/70 02/27/24 07:30 BMI result Body Mass Index 28.3 Assessment & Plan Assessment & Plan (1) Premature menopause: Code(s): E28.319 - Asymptomatic premature menopause Category: Medical Plan: Discussed with the patient that there is no indication to screen for endometrial pathology with no vaginal bleeding or any other abnormalities after 1 episode of vaginal bleeding 20 years ago with negative endometrial pathology. Instructions given the patient to call in case of vaginal bleeding, will proceed with endometrial sampling to rule out endometrial pathology including endometrial hyperplasia and/or malignancy. Discussed with the patient the following information regarding screening for ovarian ca: CA 125, the most widely studied tumor marker for ovarian cancer screening, is elevated in 50 to 90 percent of women with early ovarian cancer but also can be elevated in numerous other conditions. There is no evidence to support using Ca 125 as a screening in average-risk women Serial measurements of CA 125, using an algorithm that incorporates age and rate of change, may improve the positive predictive value of screening but not sufficiently to incorporate into clinical practice at this time. Transvaginal ultrasonography when used as a sole screening intervention has not been effective in identifying early-stage cancer. There is no evidence to suggest screening average-risk women for ovarian cancer Recommended to the patient to schedule her next annual exam and to call for any concerns including pelvic pain or any vaginal bleeding. All questions answered, the patient verbalized understanding Coding Level of Care Code Est Pt Level 3 (80338) Diagnoses Premature menopause E28.319
== END 2024-02-27 08:28 | disposition home or self-care (01) ==
PROVIDERS: PCP Internal Medicine; Visit Provider Obstetrics & Gynecology
DX: E28.319 Asymptomatic premature menopause (principal)
CPT/HCPCS: 99213

== ENCOUNTER → 2024-02-27 07:23 | Outpatient (BNVA) | payer OTHER, SELFPAY | PROVIDERS: PCP Internal Medicine; Visit Provider Obstetrics & Gynecology ==

== ENCOUNTER 2024-06-03 10:50 | Outpatient (AMB) | payer OTHER, SELFPAY ==
[2024-06-03 11:20] VITALS: BP 124/90; PULSE 72; O2SAT 98; BMI 28.3
--- NOTE | 2024-06-03 11:20 | MHC.PC.OV ---
Vital Signs 06/03/24 11:20 Height 4 ft 11 in Weight 140 lb BMI 28.3 BP 124/90 H Blood Pressure Location Lt brachial Position Sitting Pulse 72 Pulse Source Pulse Oximeter Pulse Oximetry (%) 98 Oxygen Delivery Method Room Air Intake Visit Reasons: Annual PE Intake Note: Pt is here today for her PE: Last mammogram 07/18/23, colonoscopy 04/16/12, bone density scan 08/16/23 Allergies No Known Allergies Allergy (Verified 06/03/24 11:42) Medication List - Last Reconciled 06/03/24 by Vannessa Crabtree MD cholecalciferol (vitamin D3) 125 mcg PO DAILY lorazepam 0.5 mg PO DAILY PRN multivitamin 1 tab PO DAILY omega 3-yfx-fip-fish oil 1,000 mg (120 mg-180 mg) (Fish Oil) 1 cap PO DAILY sertraline 200 mg (2 x 100 mg) PO DAILY 90 days Tobacco use date assessed: 06/03/24 Fall risk assessment: No Falls in past year Last assessed Fall Risk: 06/03/24 Dental Screening Dental Screen Date: 06/03/24 Did you have a dental visit in the last 12 months?: Yes Did you have a dental problem in the last 6 months where you did not have access to dental care?: No Was dental information given to patient?: Patient has dentist HPI Annual PE HPI Details 64 year old lady , here for her physical exam. She has generalized anxiety disorder currently stable controlled on present treatment, followed by Dr. Singh. She has premature menopause, overdue for a up-to-date with her bone density scan which was done 08/16/23 showing osteopenia in spine hip and left femur. She is up-to-date with her screening mammogram, done 07/18/2023 with benign findings. No longer gets cervical cancer screen previously was done by Dr. Tolentino. Has dyslipidemia, initially refused statin trying to control through diet and exercise. Will need a repeat lipid checked She is up-to-date with colon cancer screening, last colonoscopy was done by Dr. Gallagher in 2011 which showed negative findings, and had a Cologuard test done last year which came back with negative findings [facility] Medical History Osteopenia of multiple sites Family history of breast cancer in mother Atrophic vaginitis Dyspareunia in female Dyslipidemia (high LDL; low HDL) Generalized anxiety disorder Premature menopause History of tetanus, diphtheria, and acellular pertussis booster vaccination (Tdap) History of COVID-19 History of herpes zoster Surgical History Hx of colonoscopy History of bunionectomy Hx of section Hx of tonsillectomy Family History Father Hypertension Prostate cancer Parkinson disease Mother Hypertension Diabetes Breast cancer Maternal Aunt Breast cancer Ovarian cancer Social History Housing: House Alcohol intake: current Alcohol intake frequency: holidays/special occasions only Patient Tobacco Use Status: Former Tobacco user (38 years ago) e-Cigarette/Vaping Use: Never Used Current occupational status: employed 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 1. Little interest or pleasure in doing things: not at all 2. Feeling down, depressed, or hopeless: not at all 3. Trouble falling or staying asleep, or sleeping too much: not at all 4. Feeling tired or having little energy: not at all 5. Poor appetite or overeating: not at all 6. Feeling bad about yourself - or that you are a failure or have let yourself or your family down: not at all 7. Trouble concentrating on things, such as reading the newspaper or watching television: not at all 8. Moving or speaking so slowly that other people could have noticed. Or the opposite - being so fidgety or restless that you have been moving around a lot more than usual: not at all 9. Thoughts that you would be better off or of hurting yourself in some way: not at all Total score: 0 Depression Screening Interpretation: Negative Depression Screening Done: Yes 07904 - PHQ-9 Billing: Yes Source: Developed by Drs. Ru Soto, Yue BJose Fletcher and colleagues, with an educational elizabeth from [employer]. Thrive Questionnaire Date Thrive assessed: 05/31/24 I am a: Patient What is your living situation today?: I have a steady place to live Within the past 12 months, did you worry whether your food would run out before you got money to buy more?: Never true Do you have trouble paying for medicines?: No Do you have trouble getting transportation to medical appointments?: No Do you have trouble paying your heating and electricity bill?: No Do you have trouble taking care of your child, family member or friend?: No Do you have trouble with day-to-day activities such as bathing, preparing meals, shopping, managing finances, etc.?: No Are you currently unemployed and looking for a job?: No Are you interested in more education?: No Please select the resources that you would like help with: None Currently or been in a relationship where the following occur: No concerns reported THRIVE Score: 0 AUDIT C Alcohol Use Questionnaire (AUDIT-C) 1. How often do you have a drink containing alcohol?: Monthly or less 2. How many drinks containing alcohol do you have on a typical day when you are drinking?: 1 or 2 3. How often do you have six or more drinks on one occasion?: Never Total Score: 1 OUSMANE-7 AMB Questionnaire OUSMANE-7 Date OUSMANE - 7 assessed: 06/03/24 Feeling nervous, anxious, or on edge: 0 = Not at all Not being able to stop or control worryin = Not at all Worrying too much about different things: 0 = Not at all Trouble relaxin = Not at all Being so restless that it is hard to sit still: 0 = Not at all Becoming easily annoyed or irritable: 0 = Not at all Feeling afraid as if something awful might happen: 0 = Not at all Total OUSMANE-7 score (0-4 normal; 5-9 mild; 10-14 moderate; 15-21 severe): 0 Source: Developed by Drs. Ru Soto, Jose Donaldson and colleagues, with an educational elziabeth from [employer]. OUSMANE-7 Assessment Billing OUSMANE-7 Assessment Tool: OUSMANE-7 Assessment 18702 Review of Systems Const Denies body aches, Denies fatigue, Denies fever(s), Denies headache(s) and Denies weakness Eyes Details: goes to [facility] , has beginning cataracts and suspect glaucoma Denies change in vision, Denies eye discharge and Denies itchy eyes ENT Reports dizziness, Denies headache(s), Denies nasal congestion, Denies nasal discharge and Denies sore throat Card Denies chest pain, Denies lightheadedness, Denies palpitations and Denies dyspnea Resp Denies chest congestion, Denies cough, Denies dyspnea and Denies wheezing GI Denies abdominal pain, Denies change in bowel habits and Denies heartburn Denies hematuria, Denies urinary frequency, Denies difficulty voiding, Reports hot flashes, Denies dysuria, Denies prolapse symptoms, Denies urinary incontinence and Denies urinary urgency Musc Reports no additional complaints Skin/Breast Details: sees [place] [facility] , has had several precancerous lesions removed on her face Denies breast pain, Denies breast mass, Denies lesions and Denies rash Neuro Reports dizziness, Denies headache(s) and Denies weakness Psych Details: sees Dr Kayode Singh Reports no additional complaints and Reports as per HPI Endo Denies fatigue, Denies polydipsia, Denies polyuria and Denies palpitations Addi/Lymph Denies easy bruising Aller/Immun Denies itchy eyes, Denies seasonal rhinorrhea and Denies wheezing Physical exam (Primary Care) Vital Signs: Last Vital Signs Pulse 72 06/03/24 11:20 BP 124/90 H 06/03/24 11:20 Pulse Ox 98 06/03/24 11:20 Oxygen Delivery Method Room Air 06/03/24 11:20 BMI result Body Mass Index 28.3 Tobacco/Smoking Status: Tobacco use Status Tobacco use date assessed 06/03/24 06/03/24 11:23 Patient Tobacco Use Status Former Tobacco user (38 06/03/24 11:23 years ago) e-Cigarette/Vaping Use Never Used 06/03/24 11:23 PHQ-9: PHQ-9 Score PHQ-9: Total score 0 06/03/24 11:23 Depression Screening Interpretation: Negative Thrive Assessment: Date of Thrive Assessment Date Thrive assessed 05/31/24 06/03/24 11:23 Currently or been in a relationship where the following occur: No concerns reported Advance Care Planning discussion: Completed/Scanned Date of discussion: 06/03/24 Who was present: Patient Forms completed: Health Care Proxy Time spent: 16-45 minutes Actual minutes spent: 2 Const Other: Alert oriented x3, no acute distress noted ambulatory with normal gait Orientation/consciousness: patient oriented x3 [facility] Head: Yes normocephalic and Yes atraumatic Ears: hearing grossly normal bilaterally and external ears normal General nose exam: Normal external nose present Face and sinus: Yes normal facial exam and Yes face symmetric Mouth: Normal oral and palatal mucosa present, oropharynx normal and moist mucous membranes Eyes General: appearance normal, both eyes and all related structures Conjunctivae: conjunctivae normal Sclerae: sclerae normal Pupils: Equal, round and reactive pupils present EOM: EOMs intact bilaterally Neck Other: Thyroid nonpalpable nontender to palpation Neck: Yes full ROM, Yes no lymphadenopathy and Yes supple Chest Chest palpation & inspection: normal inspection of the chest Breast/axilla palpation: normal palpation of the breasts Resp Auscultation: clear to auscultation bilaterally Cardio Other: S1-S2 present regular rate and rhythm Bruits: no abdominal aortic bruits GI Inspection: Yes normal to inspection Palpation (GI): No Abdominal aortic bruit present, Soft to palpation, nontender, no guarding and no masses Auscultation: normal bowel sounds General: Yes no CVA tenderness Back/Spine/Pelvis Back: no CVA tenderness and No back tenderness Skin General skin exam: no rashes or lesions noted Neuro General: patient oriented x3, gait normal, tone normal, moves all extremities, Normal light touch and pain sensation, no focal motor deficits and CN's II-XI intact bilaterally Cranial nerves: Yes Equal, round and reactive pupils present Extrem General: Yes full ROM, Yes no joint enlargement, Yes no clubbing, cyanosis or edema, Yes no calf tenderness and Yes normal gait Psych Appearance: grossly normal and well kempt Mental Status: mental status grossly normal Speech and movement: Normal speech and movement present Affect: normal affect Attitude: cooperative Thought process: Normal thought process present Coding Level of Care Code Est Pt Prev Care >65y(38671) Diagnoses Annual visit for general adult medical examination with abnormal findings Z00.01 Dyslipidemia (high LDL; low HDL) E78.5 Osteopenia of multiple sites M85.89 Generalized anxiety disorder F41.1 Major depression, recurrent, full remission F33.42 Advanced directives, counseling/discussion Z71.89 Additional Codes PHQ-9 - 43044 - PHQ-9 Billing: Yes ([id number]) Vital Signs *Quality* - Advance Care Planning discussion: Completed/Scanned ([id number]) Vital Signs *Quality* - Time spent: 16-45 minutes ([id number]) OUSMANE-7 Assessment Billing - OUSMANE-7 Assessment Tool: OUSMANE-7 Assessment 00607 ([id number]) Assessment & Plan Assessment & Plan (1) Annual visit for general adult medical examination with abnormal findings: Code(s): Z00.01 - Encounter for general adult medical examination with abnormal findings Plan: Fasting labs ordered today continue dental visit every 6 months and regular eye exams, at least every 2 years, just seen at [facility]. Take adequate calcium in diet and vitamin-D 3 at 2000 IU per cap once a day, in addition to weight-bearing exercises to help maintain good muscle tone and weight control. Instructed to do self-breast exam, and continue yearly mammogram, due June this year. Up-to-date with her bone density scan which showed presence of osteopenia in multiple sites, repeat again in 2025.. Reminded to get her COVID booster and flu vaccine as well as shingles vaccination. Up-to-date with her Prevnar 20 vaccination. Up-to-date with her colon cancer screening had a negative Cologuard test done in 2022, due for recheck again in 2025. (2) Dyslipidemia (high LDL; low HDL): Code(s): E78.5 - Hyperlipidemia, unspecified Category: Medical Plan: Recheck fasting lipids. Stressed importance of getting regular cardio exercise at least 150 minutes a week, and adherence to low-cholesterol diet. (3) Osteopenia of multiple sites: Code(s): M85.89 - Other specified disorders of bone density and structure, multiple sites Category: Medical Plan: Discuss results of recent bone density scan which showed presence of osteopenia in lumbar spine, left femoral neck and left thigh, advised to do regular weight-bearing exercise, recommend to joint exercise program at the [facility] for osteoporosis prevention continue taking vitamin-D 3 supplements and adequate dietary calcium intake repeat another bone density scan in 2 years (4) Generalized anxiety disorder: Code(s): F41.1 - Generalized anxiety disorder Category: Medical Plan: Currently on sertraline and lorazepam as needed followed by Dr. Singh (5) Major depression, recurrent, full remission: Code(s): F33.42 - Major depressive disorder, recurrent, in full remission Category: Medical Plan: Currently on lorazepam as needed and sertraline, followed by Dr. Singh (6) Advanced directives, counseling/discussion: Code(s): Z71.89 - Other specified counseling Plan: Initiated the conversation about Advanced Directives. Advanced Directives help patients prepare for current and future decisions about their medical treatment and place of care. Discussed with patient that it is a process where a patients current condition and prognosis are reviewed, their wishes for information regarding their illness are elicited, and likely medical dilemmas are presented and options discussed. Healthcare proxy form completed today. The form can be amended as needed, reviewed yearly and make changes as needed Orders: Orders Alanine Aminotransferase Today E78.5 - Hyperlipidemia, unspecified, F33.42 - Major depressive disorder, recurrent, in full remission, F41.1 - Generalized anxiety disorder, Z00.01 - Encounter for general adult medical examination with abnormal findings Basic Metabolic Panel Fasting Today E78.5 - Hyperlipidemia, unspecified, F33.42 - Major depressive disorder, recurrent, in full remission, F41.1 - Generalized anxiety disorder, Z00.01 - Encounter for general adult medical examination with abnormal findings Vitamin D 25-OH Total Today E78.5 - Hyperlipidemia, unspecified, F33.42 - Major depressive disorder, recurrent, in full remission, F41.1 - Generalized anxiety disorder, Z00.01 - Encounter for general adult medical examination with abnormal findings Lipid Panel Today E78.5 - Hyperlipidemia, unspecified, F33.42 - Major depressive disorder, recurrent, in full remission, F41.1 - Generalized anxiety disorder, Z00.01 - Encounter for general adult medical examination with abnormal findings Aspartate Amino Transferase Today E78.5 - Hyperlipidemia, unspecified, F33.42 - Major depressive disorder, recurrent, in full remission, F41.1 - Generalized anxiety disorder, Z00.01 - Encounter for general adult medical examination with abnormal findings
== END 2024-06-03 12:05 | disposition home or self-care (01) ==
PROVIDERS: PCP Internal Medicine; Visit Provider Internal Medicine
DX: Z00.01 Encounter for general adult medical examination with abnormal findings (principal); E78.5 Hyperlipidemia, unspecified; M85.89 Other specified disorders of bone density and structure, multiple sites; F41.1 Generalized anxiety disorder; F33.42 Major depressive disorder, recurrent, in full remission; Z71.89 Other specified counseling; Z00.00 Encounter for general adult medical examination without abnormal findings

== ENCOUNTER → 2024-06-03 10:50 | Outpatient (BNVA) | payer OTHER, SELFPAY | PROVIDERS: PCP Internal Medicine; Visit Provider Internal Medicine | DX: Z00.01 Encounter for general adult medical examination with abnormal findings (principal); E78.5 Hyperlipidemia, unspecified; M85.89 Other specified disorders of bone density and structure, multiple sites; F41.1 Generalized anxiety disorder; F33.42 Major depressive disorder, recurrent, in full remission; Z79.899 Other long term (current) drug therapy; Z71.89 Other specified counseling | CPT/HCPCS: 96127 ==

== ENCOUNTER 2024-06-12 08:21 | Outpatient (REF) | payer OTHER, SELFPAY ==
[2024-06-12 10:52] LABS: Alanine Aminotransferase 13 U/L (0-31); Anion Gap 8 (12-20); Aspartate Amino Transferase 23 U/L (5-31); Blood Urea Nitrogen 11 mg/dL (9-16); Carbon Dioxide 31 mmol/L (22-29); Chloride 105 mmol/L (96-108); Cholesterol 252 mg/dL (<200); Estimated Glomerular Filt Rate > 60; Glucose Fasting 92 mg/dL (60-99); HDL Cholesterol 52 mg/dL (>40); LDL Cholesterol Calculated 179 mg/dL (<100); Potassium 4.4 mmol/L (3.3-5.1); Sodium 140 mmol/L (135-145); Triglycerides 109 mg/dL (<150); Vitamin D 25-OH Total 93.5 ng/mL (>30)
== END 2024-06-12 08:22 | disposition home or self-care (01) ==
LOC: HO.HMGCLDS 08:21
PROVIDERS: PCP Internal Medicine; Visit Provider Internal Medicine
DX: Z00.01 Encounter for general adult medical examination with abnormal findings (principal); F33.42 Major depressive disorder, recurrent, in full remission; E78.5 Hyperlipidemia, unspecified; F41.1 Generalized anxiety disorder
CPT/HCPCS: 36415; 80048; 80061; 82306; 84450; 84460

== ENCOUNTER 2024-09-16 13:54 | Outpatient (AMB) | payer OTHER, SELFPAY ==
--- NOTE | 2024-09-16 14:21 | A.OFFPSYCH_ITS ---
Intake Intake Visit Reasons: depression Allergies No Known Allergies Allergy (Verified 09/25/24 10:48) Medication List - Last Reconciled 09/27/24 by Fabio Singh MD cholecalciferol (vitamin D3) 125 mcg PO DAILY lorazepam 0.5 mg PO DAILY PRN multivitamin 1 tab PO DAILY omega 2-otb-nqo-fish oil 1,000 (120-180) mg (Fish Oil) 1 cap PO DAILY rosuvastatin 5 mg PO 2XW 3 months sertraline 200 mg (2 x 100 mg) PO DAILY 90 days HPI- Psychiatric Chief Complaint: depression HPI Narrative: Pt is a 64 yo currently living with son also and 2 cats tends to ruminate still works part-time. On sertraline 200 mg generally doing okay she worry somewhat regarding . She occasionally has some mild breakthrough but generally doing okay. Important to her to continue having Part-time job. No new medical problems. Very rare use of a benzodiazepine for extremely rare use of anxiety attack . Past Psychiatric History: hx recurrent dysphoria past panic dx Mental Status Exam Mental Status Exam Narrative: Mental Status Exam Narrative: Appearance: Casually dressed Behavior: Cooperative appropriate psychomotor: Within normal limits Speech: Normal volume and prosody focused on feeling and powered Thought proccess logical and goal-directed Thought content: Future oriented focused on treatment some concerns regarding family Mood: Generally okay some anxiety Affect: Appropriate to mood full affect SI:denies HI:denies VH/AH:none Delusions: None Insight/judgment: Good insight and judgment Memory/cog: Intact Assessment and Plan Assessment & Plan (1) Generalized anxiety disorder: Status: Acute Code(s): F41.1 - Generalized anxiety disorder (2) Major depression, recurrent, full remission: Status: Acute Code(s): F33.42 - Major depressive disorder, recurrent, in full remission Plan Continue sertraline and lorazepam patient's family had been through difficult time doing better 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 No complaints of side effects [place] 3 fatty acids helpful for mood and elevated lipids Medications: Refilled lorazepam 0.5 mg PO DAILY PRN 15 tabs 3RF anxiety Counseling and coordination of Care Details-Self Mgmt counseling: Issues related to managing mood Medication management counseling: Effectiveness, Side effects and Dosing range Details: I spent [30] minutes reviewing the record, seeing the patient and documenting in the medical record. Counseling provided to the patient/caregiver as outlined below. Addressed patient/caregiver concerns regarding current medication regime including effective adherence. Addressed patient/caregiver concerns regarding diagnosis and prognosis including accuracy of diagnosis, prognosis over time, impact of diagnosis. Addressed patient/caregiver concerns regarding impact of recent stressors. [facility] Medical History Osteopenia of multiple sites Family history of breast cancer in mother Atrophic vaginitis Dyspareunia in female Dyslipidemia (high LDL; low HDL) Generalized anxiety disorder Premature menopause History of tetanus, diphtheria, and acellular pertussis booster vaccination (Tdap) History of COVID-19 History of herpes zoster Surgical History Hx of colonoscopy History of bunionectomy Hx of section Hx of tonsillectomy Family History Father Hypertension Prostate cancer Parkinson disease Mother Hypertension Diabetes Breast cancer Maternal Aunt Breast cancer Ovarian cancer Social History Housing: House Alcohol intake: current Alcohol intake frequency: holidays/special occasions only Patient Tobacco Use Status: Former Tobacco user (38 years ago) e-Cigarette/Vaping Use: Never Used service: No Current occupational status: employed 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
--- OUTSIDE RECORDS SUMMARY | 2024-09-16 17:06 | XMS_ITS | Patient Health Record ---
Author Organization [employer] [place] [facility] (Formerly [facility]) Address [address] [place] [address] Care Team Providers Care Winterizer Name Role Phone NAGA WEI M.D. Primary Care Provider Marcia Marquez Unavailable [phone] Reason For Referral No Information Medications Medication SIG (Take, Route, Fr equency, Duration) Notes Start Date End Date Status Multivitamins 1 ORAL daily for -3 [facility] 05/16/2011 Active Vagifem 10 MCG 1 VAGINAL THREE X A WEEK for -3 [facility] 06/30/2012 Active Vit D 1000IU 1 ORAL daily for -3 [facility] 05/16/2011 Active Sertraline HCl 100 MG 1 tablet Orally Once a day Active Estring 2 MG 1 ring Vaginal Q 3 M ONT for 90 days 10/21/2014 Active Estrace 0.1 MG/GM 1 GRAM Vaginal TWICE A WEEK for 365 days 10/21/2014 Active Calcium 600MG 1 ORAL twice daily for -3 [facility] 05/16/2011 Active Social History Tobacco use other than smoking: Question Answer Notes Are you an other tobacco user? No Problems Problem Type SNOMED Code ICD Code Onset Dates Problem Status W/U Status Risk Notes Problem Postmenopausal atrophic vaginitis (14622563) Postmenopausal atrophic vaginitis (627.3) Active confirmed Diag Problem Gynecological examination normal ([id number]) Routine gynecological examination (V72.31) Active confirmed Problem Screening for malignant neoplasm of cervix (001153493) Screening for malignant neoplasm of the cervix (V76.2) Active confirmed Diag Plan Of Treatment Pending Test Test Name Order Date MAMMOGRAM, SCREENING 10/21/2014 Insurance Providers Payer Name Payer Address Payer Phone Subscriber Number Group Number Insured Name Patient Relationship to Insured Coverage Start Date Coverage End Date [employer] [address] [place], [place] [address] [phone] [id number] JENNIE GROVER Spouse - patient is the spouse of the insured Medical (General) History Medical History History ICD Code Postmenopausal atrophic vaginitis 627.3 Surgical History Surgery Date(Month/Year)
== END 2024-09-16 14:44 | disposition home or self-care (01) ==
LOC: HO.HOP 13:54
PROVIDERS: PCP Internal Medicine; Visit Provider Psychiatry & Neurology Psychiatry
DX: F41.1 Generalized anxiety disorder (principal); F33.42 Major depressive disorder, recurrent, in full remission
CPT/HCPCS: 99214

== ENCOUNTER → 2024-09-16 13:54 | Outpatient (BNVA) | payer OTHER, SELFPAY | PROVIDERS: PCP Internal Medicine; Visit Provider Psychiatry & Neurology Psychiatry ==

== ENCOUNTER 2024-09-21 08:20 | Outpatient (REF) | payer OTHER, SELFPAY ==
[2024-09-21 10:56] LABS: Cholesterol 246 mg/dL (<200); HDL Cholesterol 55 mg/dL (>40); LDL Cholesterol Calculated 175 mg/dL (<100); Triglycerides 83 mg/dL (<150)
== END 2024-09-21 08:21 | disposition home or self-care (01) ==
LOC: HO.HMGCLDS 08:20
PROVIDERS: PCP Internal Medicine; Visit Provider Internal Medicine
DX: E78.5 Hyperlipidemia, unspecified (principal)
CPT/HCPCS: 36415; 80061

== ENCOUNTER 2024-09-25 10:41 | Outpatient (AMB) | payer OTHER, SELFPAY ==
--- NOTE | 2024-09-25 10:38 | MHC.PC.OV ---
Intake Visit Reasons: f/u lipids Iphone [phone] Allergies No Known Allergies Allergy (Verified 09/25/24 10:48) Medication List - Last Reconciled 09/25/24 by Vannessa Crabtree MD cholecalciferol (vitamin D3) 125 mcg PO DAILY lorazepam 0.5 mg PO DAILY PRN multivitamin 1 tab PO DAILY omega 4-ubn-dgg-fish oil 1,000 (120-180) mg (Fish Oil) 1 cap PO DAILY sertraline 200 mg (2 x 100 mg) PO DAILY 90 days Tobacco use date assessed: 09/25/24 Fall risk assessment: No Falls in past year Last assessed Fall Risk: 09/25/24 Dental Screening Dental Screen Date: 09/25/24 Did you have a dental visit in the last 12 months?: Yes Did you have a dental problem in the last 6 months where you did not have access to dental care?: No Was dental information given to patient?: Patient has dentist HPI f/u lipids Iphone [phone] HPI Details Telehealth visit made with 64-year-old lady with dyslipidemia, here today for follow-up. She has been taking [place] 3 fatty acid supplements, but has been refusing to start statin therapy. Recent fasting labs showed still elevated LDL cholesterol unchanged from last check at 179 mg per dL [facility] Medical History Osteopenia of multiple sites Family history of breast cancer in mother Atrophic vaginitis Dyspareunia in female Dyslipidemia (high LDL; low HDL) Generalized anxiety disorder Premature menopause History of tetanus, diphtheria, and acellular pertussis booster vaccination (Tdap) History of COVID-19 History of herpes zoster Surgical History Hx of colonoscopy History of bunionectomy Hx of section Hx of tonsillectomy Family History Father Hypertension Prostate cancer Parkinson disease Mother Hypertension Diabetes Breast cancer Maternal Aunt Breast cancer Ovarian cancer Social History Housing: House Alcohol intake: current Alcohol intake frequency: holidays/special occasions only Patient Tobacco Use Status: Former Tobacco user (38 years ago) e-Cigarette/Vaping Use: Never Used service: No Current occupational status: employed 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 1. Little interest or pleasure in doing things: not at all 2. Feeling down, depressed, or hopeless: not at all 3. Trouble falling or staying asleep, or sleeping too much: not at all 4. Feeling tired or having little energy: not at all 5. Poor appetite or overeating: not at all 6. Feeling bad about yourself - or that you are a failure or have let yourself or your family down: not at all 7. Trouble concentrating on things, such as reading the newspaper or watching television: not at all 8. Moving or speaking so slowly that other people could have noticed. Or the opposite - being so fidgety or restless that you have been moving around a lot more than usual: not at all 9. Thoughts that you would be better off or of hurting yourself in some way: not at all Total score: 0 Depression Screening Interpretation: Negative Depression Screening Done: Yes 48665 - PHQ-9 Billing: Yes Source: Developed by Drs. Ru Soto, Yue Stern, Jose Whitney and colleagues, with an educational elizabeth from [employer]. Thrive Questionnaire Date Thrive assessed: 09/25/24 I am a: Patient What is your living situation today?: I have a steady place to live Within the past 12 months, did you worry whether your food would run out before you got money to buy more?: Never true Do you have trouble paying for medicines?: No Do you have trouble getting transportation to medical appointments?: No Do you have trouble paying your heating and electricity bill?: No Do you have trouble taking care of your child, family member or friend?: No Do you have trouble with day-to-day activities such as bathing, preparing meals, shopping, managing finances, etc.?: No Are you currently unemployed and looking for a job?: No Are you interested in more education?: No Please select the resources that you would like help with: None Currently or been in a relationship where the following occur: No concerns reported THRIVE Score: 0 AUDIT C Alcohol Use Questionnaire (AUDIT-C) 2. How many drinks containing alcohol do you have on a typical day when you are drinking?: 1 or 2 3. How often do you have six or more drinks on one occasion?: Never Total Score: 0 OUSMANE-7 AMB Questionnaire OUSMANE-7 Date OUSMANE - 7 assessed: 09/25/24 Feeling nervous, anxious, or on edge: 0 = Not at all Not being able to stop or control worryin = Not at all Worrying too much about different things: 0 = Not at all Trouble relaxin = Not at all Being so restless that it is hard to sit still: 0 = Not at all Becoming easily annoyed or irritable: 0 = Not at all Feeling afraid as if something awful might happen: 0 = Not at all Total OUSMANE-7 score (0-4 normal; 5-9 mild; 10-14 moderate; 15-21 severe): 0 Source: Developed by Drs. Ru Soto, Yue Stern, Jose Whitney and colleagues, with an educational elizabeth from [employer]. OUSMANE-7 Assessment Billing OUSMANE-7 Assessment Tool: OUSMANE-7 Assessment 12239 Review of Systems Const Denies body aches, Denies fatigue, Denies fever(s), Denies headache(s) and Denies weakness Eyes Details: goes to [facility] , has beginning cataracts and suspect glaucoma Denies change in vision, Denies eye discharge and Denies itchy eyes ENT Reports dizziness, Denies headache(s), Denies nasal congestion, Denies nasal discharge and Denies sore throat Card Denies chest pain, Denies lightheadedness, Denies palpitations and Denies dyspnea Resp Denies chest congestion, Denies cough, Denies dyspnea and Denies wheezing GI Denies abdominal pain, Denies change in bowel habits and Denies heartburn Denies hematuria, Denies urinary frequency, Denies difficulty voiding, Reports hot flashes, Denies dysuria, Denies prolapse symptoms, Denies urinary incontinence and Denies urinary urgency Musc Reports no additional complaints Skin/Breast Details: sees [facility] , has had several precancerous lesions removed on her face Denies breast pain, Denies breast mass, Denies lesions and Denies rash Neuro Reports dizziness, Denies headache(s) and Denies weakness Psych Details: sees Dr Kayode Singh Reports no additional complaints and Reports as per HPI Endo Denies fatigue, Denies polydipsia, Denies polyuria and Denies palpitations Addi/Lymph Denies easy bruising Aller/Immun Denies itchy eyes, Denies seasonal rhinorrhea and Denies wheezing Physical exam (Primary Care) Tobacco/Smoking Status: Tobacco use Status Tobacco use date assessed 09/25/24 09/25/24 10:39 Patient Tobacco Use Status Former Tobacco user (38 09/25/24 10:39 years ago) e-Cigarette/Vaping Use Never Used 09/25/24 10:39 PHQ-9: PHQ-9 Score PHQ-9: Total score 0 09/25/24 10:52 Depression Screening Interpretation: Negative Thrive Assessment: Date of Thrive Assessment Date Thrive assessed 09/25/24 09/25/24 10:40 Currently or been in a relationship where the following occur: No concerns reported Telehealth Telehealth Telehealth Platform: [facility] Location of provider rendering services: practice address Location of patient: address on file Patient Identification confirmed using: Name, : Yes Telehealth method: video Patient verbally consented to treatment: Yes Patient verbally consented to billing insurance company: Yes Patient informed of any privacy concerns related to visit: Yes Minutes spent on Phone/Video with Pt.: 15 Results Reviewed Results Reviewed: Name: Nikki Obrien Age/Sex: 64/F : 1960 Unit#: [id number] Attend Dr: Vannessa Crabtree MD Re09/21/24 Status: DEP REF Location: [facility] Disch: SPEC : [id number] JEFF: 09/21/24 STATUS: COMP REQ : [id number] RECD: 09/21/24-[address]: Vannessa Crabtree MD COMP: 09/21/24 ENTERED: 09/21/[address]: ORDERED: Lipid Panel Test Result Flag Reference Triglyceride 83 <150 mg/dL Desirable Triglyceride: less than 150 mg/dL Borderline High Triglyceride 150-199 mg/dL High Triglyceride: 200-499 mg/dL Very High Triglyceride: greater than or equal to 5OO mg/dL Cholesterol 246 H <200 mg/dL Desirable Cholesterol: less than 200 mg/dL Borderline High Cholesterol: 200-239 mg/dL High Cholesterol: greater than 239 mg/dL LDL Calculated 175 H <100 mg/dL Desirable LDL: less than 100 mg/dL Near Optimal/Above Optimal LDL: 110-129 mg/dL Borderline High LDL: 130-159 mg/dL High LDL: 160-189 mg/dL Very High LDL: greater than or equal to 190 mg/dL HDL 55 >40 mg/dL Desirable HDL: greater than 40 mg/dL Note: This HDL assay may give artificially low results in patients with liver disease. Coding Level of Care Code Tele Est Pt Level 3 (17350) Diagnoses Dyslipidemia (high LDL; low HDL) E78.5 Additional Codes PHQ-9 - 26678 - PHQ-9 Billing: Yes ([id number]) OUSMANE-7 Assessment Billing - OUSMANE-7 Assessment Tool: OUSMANE-7 Assessment 69732 ([id number]) Assessment & Plan Assessment & Plan (1) Dyslipidemia (high LDL; low HDL): Code(s): E78.5 - Hyperlipidemia, unspecified Category: Medical Plan: Discuss recent lab results with patient which showed elevated LDL cholesterol still despite taking [place] 3 fatty acid supplements. Agrees to take rosuvastatin 5 mg per tablet take 1 tablet twice a week, and add Co Q10 100 mg together with the it, continue with [place] 3 fatty acid supplements in addition to adherence to healthy eating habits and regular exercise. Will check again a fasting lipid panel, liver enzymes and total CK in 02/07/2025, do fasting labs prior to appointment Orders: Orders Lipid Panel 01/19/25 E78.5 - Hyperlipidemia, unspecified Aspartate Amino Transferase 01/19/25 E78.5 - Hyperlipidemia, unspecified Creatine Kinase Total 01/19/25 E78.5 - Hyperlipidemia, unspecified Alanine Aminotransferase 01/19/25 E78.5 - Hyperlipidemia, unspecified Medications: New rosuvastatin 5 mg PO 2XW 26 tabs 2RF 3 months
--- OUTSIDE RECORDS SUMMARY | 2024-09-25 12:08 | XMS_ITS | Patient Health Record ---
Author Organization [facility] Address [address] [place] [address] Care Team Providers Care Pony Worker Name Role Phone NAGA WEI M.D. Primary Care Provider Marcia Marquez Unavailable [phone] Reason For Referral No Information Medications Medication SIG (Take, Route, Fr equency, Duration) Notes Start Date End Date Status Multivitamins 1 ORAL daily for -3 [facility] 05/16/2011 Active Vagifem 10 MCG 1 VAGINAL THREE X A WEEK for -3 [facility] 06/30/2012 Active Vit D 1000IU 1 ORAL daily for -3 [facility] 05/16/2011 Active Sertraline HCl 100 MG 1 tablet Orally Once a day Active Estring 2 MG 1 ring Vaginal Q 3 M ONT for 90 days 10/21/2014 Active Estrace 0.1 MG/GM 1 GRAM Vaginal TWICE A WEEK for 365 days 10/21/2014 Active Calcium 600MG 1 ORAL twice daily for -3 [facility] 05/16/2011 Active Social History Tobacco use other than smoking: Question Answer Notes Are you an other tobacco user? No Problems Problem Type SNOMED Code ICD Code Onset Dates Problem Status W/U Status Risk Notes Problem Postmenopausal atrophic vaginitis (82826919) Postmenopausal atrophic vaginitis (627.3) Active confirmed Diag Problem Gynecological examination normal (851152767910719) Routine gynecological examination (V72.31) Active confirmed Problem Screening for malignant neoplasm of cervix (155195350) Screening for malignant neoplasm of the cervix (V76.2) Active confirmed Diag Plan Of Treatment Pending Test Test Name Order Date MAMMOGRAM, SCREENING 10/21/2014 Insurance Providers Payer Name Payer Address Payer Phone Subscriber Number Group Number Insured Name Patient Relationship to Insured Coverage Start Date Coverage End Date [employer] [address] [place], [place] [address] [id number] JENNIE GROVER Spouse - patient is the spouse of the insured Medical (General) History Medical History History ICD Code Postmenopausal atrophic vaginitis 627.3 Surgical History Surgery Date(Month/Year)
== END 2024-09-25 11:22 | disposition home or self-care (01) ==
LOC: HO.HMCC 10:41
PROVIDERS: PCP Internal Medicine; Visit Provider Internal Medicine
DX: E78.5 Hyperlipidemia, unspecified (principal)

== ENCOUNTER → 2024-09-25 10:41 | Outpatient (BNVA) | payer OTHER, SELFPAY | PROVIDERS: PCP Internal Medicine; Visit Provider Internal Medicine | DX: E78.5 Hyperlipidemia, unspecified (principal) | CPT/HCPCS: 96127 ==

== ENCOUNTER 2024-12-10 14:15 | Outpatient (AMB) | payer MEDICARE, SELFPAY ==
--- OUTSIDE RECORDS SUMMARY | 2024-12-10 14:23 | XMS_ITS | Patient Health Record ---
Author Organization [employer] [facility] Address [address] [place] [address] Care Team Providers Care Plastic Surgery Nurse Name Role Phone NAGA WEI M.D. Primary Care Provider Marcia Marquez Unavailable [phone] Reason For Referral No Information Medications Medication SIG (Take, Route, Fr equency, Duration) Notes Start Date End Date Status Multivitamins 1 ORAL daily for -3 [facility] 05/16/2011 Active Vagifem 10 MCG 1 VAGINAL THREE X A WEEK for -3 [facility] 06/30/2012 Active Vit D 1000IU 1 ORAL daily for -3 [facility] 05/16/2011 Active Sertraline HCl 100 MG 1 tablet Orally Once a day Active Estring 2 MG 1 ring Vaginal Q 3 M ONT for 90 days 10/21/2014 Active Estrace 0.1 MG/GM 1 GRAM Vaginal TWICE A WEEK for 365 days 10/21/2014 Active Calcium 600MG 1 ORAL twice daily for -3 [facility] 05/16/2011 Active Social History Tobacco use other than smoking: Question Answer Notes Are you an other tobacco user? No Problems Problem Type SNOMED Code ICD Code Onset Dates Problem Status W/U Status Risk Notes Problem Postmenopausal atrophic vaginitis (90188427) Postmenopausal atrophic vaginitis (627.3) Active confirmed Diag Problem Gynecological examination normal (307419054305607) Routine gynecological examination (V72.31) Active confirmed Problem Screening for malignant neoplasm of cervix (400111260) Screening for malignant neoplasm of the cervix (V76.2) Active confirmed Diag Plan Of Treatment Pending Test Test Name Order Date MAMMOGRAM, SCREENING 10/21/2014 Insurance Providers Payer Name Payer Address Payer Phone Subscriber Number Group Number Insured Name Patient Relationship to Insured Coverage Start Date Coverage End Date [employer] [address] [place], JADA [address] [phone] [id number] JENNIE GROVER Spouse - patient is the spouse of the insured Medical (General) History Medical History History ICD Code Postmenopausal atrophic vaginitis 627.3 Surgical History Surgery Date(Month/Year)
--- NOTE | 2024-12-10 14:33 | A.OFFPSYCH_ITS ---
Intake Intake Visit Reasons: depression Allergies No Known Allergies Allergy (Verified 09/25/24 10:48) HPI- Psychiatric Chief Complaint: depression HPI Narrative: Patient seen psychiatric follow-up. 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 Has tendency toward chronic worry and melancholia we have discussed L methyl folate in the past. Some chronic family stress. Patient is quite supportive of her . Medically being treated for hypercholesterolemia low vitamin-D Past Psychiatric History: hx recurrent dysphoria past panic dx Mental Status Exam Mental Status Exam Narrative: Mental Status Exam Narrative: Appearance: Casually dressed Behavior: Cooperative appropriate psychomotor: Within normal limits Speech: Normal volume and prosody focused on feeling and powered Thought proccess logical and goal-directed Thought content: Future oriented focused on treatment Mood: Generally okay some anxiety Affect: Appropriate to mood full affect SI:denies HI:denies VH/AH:none Delusions: None Insight/judgment: Good insight and judgment Memory/cog: Intact Assessment and Plan Assessment & Plan (1) Generalized anxiety disorder: Status: Acute Code(s): F41.1 - Generalized anxiety disorder (2) Major depression, recurrent, full remission: Status: Acute Code(s): F33.42 - Major depressive disorder, recurrent, in full remission (3) Dyslipidemia (high LDL; low HDL): Status: Acute Code(s): E78.5 - Hyperlipidemia, unspecified Plan Continue sertraline some chronic mild side effects that her manageable. She has done well on 200 mg daily rare use of lorazepam 0.5 mg daily PRN for rescue from panic Medications: Refilled sertraline 200 mg (2 x 100 mg) PO DAILY 90 days 180 tabs 1RF lorazepam 0.5 mg PO DAILY PRN 15 tabs 3RF anxiety Counseling and coordination of Care Pt. Self Management counseling: Breathing and Cognitive restructuring Diagnosis and Prognosis Counseling: Prognosis over time and Adequacy of current interventions Details: I spent [30] minutes reviewing the record, seeing the patient and documenting in the medical record. Counseling provided to the patient/caregiver as outlined below. Addressed patient/caregiver concerns regarding current medication regime including effective adherence. Addressed patient/caregiver concerns regarding diagnosis and prognosis including accuracy of diagnosis, prognosis over time, impact of diagnosis. Addressed patient/caregiver concerns regarding impact of recent stressors. [facility], [facility] Medical History Osteopenia of multiple sites Family history of breast cancer in mother Atrophic vaginitis Dyspareunia in female Dyslipidemia (high LDL; low HDL) Generalized anxiety disorder Premature menopause History of tetanus, diphtheria, and acellular pertussis booster vaccination (Tdap) History of COVID-19 History of herpes zoster Surgical History Hx of colonoscopy History of bunionectomy Hx of section Hx of tonsillectomy Family History Father Hypertension Prostate cancer Parkinson disease Mother Hypertension Diabetes Breast cancer Maternal Aunt Breast cancer Ovarian cancer Social History Housing: House Alcohol intake: current Alcohol intake frequency: holidays/special occasions only Patient Tobacco Use Status: Former Tobacco user e-Cigarette/Vaping Use: Never Used service: No Current occupational status: employed 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
== END 2024-12-10 14:43 | disposition home or self-care (01) ==
LOC: HO.HOP 14:15
PROVIDERS: PCP Internal Medicine; Visit Provider Psychiatry & Neurology Psychiatry
DX: F41.1 Generalized anxiety disorder (principal); F33.42 Major depressive disorder, recurrent, in full remission; E78.5 Hyperlipidemia, unspecified
CPT/HCPCS: 99214

== ENCOUNTER → 2024-12-10 14:15 | Outpatient (BNVA) | payer MEDICARE, SELFPAY | PROVIDERS: PCP Internal Medicine; Visit Provider Psychiatry & Neurology Psychiatry | DX: F41.1 Generalized anxiety disorder (principal); F33.42 Major depressive disorder, recurrent, in full remission; E78.5 Hyperlipidemia, unspecified; Z71.89 Other specified counseling | CPT/HCPCS: 99212 ==

== ENCOUNTER 2025-01-06 08:27 | Outpatient (AMB) | payer MEDICARE, SELFPAY ==
--- NOTE | 2025-01-06 08:28 | A.OFFVIS_ITS ---
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 No complaints. Last Pap/HPV was in 08/14 was negative Last Mammogram was BI-RADS 2 at [facility] in 09/15 Last Colonoscopy Last DEXA scan was in 09/14 [facility] Medical History Osteopenia of multiple sites Family history of breast cancer in mother Atrophic vaginitis Dyspareunia in female Dyslipidemia (high LDL; low HDL) Generalized anxiety disorder Premature menopause History of tetanus, diphtheria, and acellular pertussis booster vaccination (Tdap) History of COVID-19 History of herpes zoster Surgical History Hx of colonoscopy History of bunionectomy Hx of section Hx of tonsillectomy Family History Father Hypertension Prostate cancer Parkinson disease Mother Hypertension Diabetes Breast cancer Maternal Aunt Breast cancer Ovarian cancer Social History Housing: House Alcohol intake: current Alcohol intake frequency: holidays/special occasions only Patient Tobacco Use Status: Former Tobacco user (38 years ago) e-Cigarette/Vaping Use: Never Used service: No Current occupational status: employed 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 [employer] Sexual orientation: Straight/Heterosexual Gender identity: Female Cognitive needs: No Hearing needs: No Vision needs: Yes Female Reproductive History Menstrual Date of last pap smear: 08/08/23 Date of Mammogram: 08/27/24 Review of Systems Const All systems reviewed & are unremarkable except as noted in HPI and below Card Reports as per HPI Resp Reports as per HPI GI Reports as per HPI and Reports no additional complaints Reports as per HPI Physical Exam Vital Signs: Last Vital Signs BP 140/82 H 01/06/25 08:29 BMI result Body Mass Index 27.5 Const General: cooperative, healthy appearing and comfortable Chest Chest palpation & inspection: normal inspection of the chest and normal palpation of entire chest wall Breast/axilla inspection: normal inspection of the breasts and normal inspection of the axillae Breast/axilla palpation: normal palpation of the breasts, normal palpation of the axillae and no axillary lymphadenopathy Resp Effort & Inspection: normal respiratory effort Auscultation: clear to auscultation bilaterally Percussion: percussion normal Cardio Palpation: normal PMI Rate: regular rate Rhythm: regular rhythm Heart sounds: no murmurs and no rubs Peripheral pulses: Peripheral pulses 2+ throughout GI Inspection: Yes normal to inspection Palpation (GI): Soft to palpation, nontender, no guarding, not rigid and No hepatosplenomegaly present Percussion: Yes normal to percussion Auscultation: normal bowel sounds Rectal Exam - Female: deferred General: Yes bladder normal to palpation External Female Exam: No lesion Speculum Exam - Vagina: normal appearance of the vagina, normal palpation, normal vaginal discharge and not erythematous Speculum Exam - Cervix: normal appearance of the cervix and normal palpation Bimanual exam- vagina & uterus: normal bimanual exam, normal palpation, uterine size normal, bladder normal to palpation, consistency normal and normal palpation Bimanual Exam- Adnexa, other: normal adnexae, no masses and no tenderness Assessment & Plan Assessment & Plan (1) Well woman exam: Code(s): Z01.419 - Encounter for gynecological examination (general) (routine) without abnormal findings Category: Medical Plan: Co testing not indicated since the patient 's age is above 65 with no history of abnormal Pap smears last 25 years, adequately screen for the last 10 years with no history of immunosuppression. Counseled the patient about the recommended dietary allowance of 1200 mg of Calcium & 800 IU of vitamin D. Instructions given to the patient to schedule next screening Mammogram in 09/15 Referred her for screening colonoscopy done. The patient was instructed to perform monthly self-breast exams and to schedule an annual exam in a year; All questions answered and the patient verbalized understanding. Orders: Referrals Gastroenterology Referral Z12.11 - Encounter for screening for malignant neoplasm of colon Coding Level of Care Code Est Pt Prev Care >65y(86750) Diagnoses Well woman exam Z01.419
[2025-01-06 08:29] VITALS: BP 140/82; BMI 27.5
--- OUTSIDE RECORDS SUMMARY | 2025-01-06 08:48 | XMS_ITS | Patient Health Record ---
Author Organization [facility] Address [address] [place] [address] Care Team Providers Care Product Support Consultant Name Role Phone NAGA WEI M.D. Primary Care Provider Marcia Marquez Unavailable [phone] Reason For Referral No Information Medications Medication SIG (Take, Route, Fr equency, Duration) Notes Start Date End Date Status Multivitamins 1 ORAL daily for -3 [facility] 05/16/2011 Active Vagifem 10 MCG 1 VAGINAL THREE X A WEEK for -3 [facility] 06/30/2012 Active Vit D 1000IU 1 ORAL daily for -3 [facility] 05/16/2011 Active Sertraline HCl 100 MG 1 tablet Orally Once a day Active Estring 2 MG 1 ring Vaginal Q 3 M ONT for 90 days 10/21/2014 Active Estrace 0.1 MG/GM 1 GRAM Vaginal TWICE A WEEK for 365 days 10/21/2014 Active Calcium 600MG 1 ORAL twice daily for -3 [facility] 05/16/2011 Active Social History Tobacco use other than smoking: Question Answer Notes Are you an other tobacco user? No Problems Problem Type SNOMED Code ICD Code Onset Dates Problem Status W/U Status Risk Notes Problem Postmenopausal atrophic vaginitis (73890498) Postmenopausal atrophic vaginitis (627.3) Active confirmed Diag Problem Gynecological examination normal (861024028744479) Routine gynecological examination (V72.31) Active confirmed Problem Screening for malignant neoplasm of cervix (858679106) Screening for malignant neoplasm of the cervix (V76.2) Active confirmed Diag Plan Of Treatment Pending Test Test Name Order Date MAMMOGRAM, SCREENING 10/21/2014 Insurance Providers Payer Name Payer Address Payer Phone Subscriber Number Group Number Insured Name Patient Relationship to Insured Coverage Start Date Coverage End Date CIGNA [address] [place], [place] [address] [phone] [id number] JENNIE GROVER Spouse - patient is the spouse of the insured Medical (General) History Medical History History ICD Code Postmenopausal atrophic vaginitis 627.3 Surgical History Surgery Date(Month/Year)
== END 2025-01-06 08:55 | disposition home or self-care (01) ==
LOC: HO.HWS 08:27
PROVIDERS: PCP Internal Medicine; Visit Provider Obstetrics & Gynecology
DX: Z01.419 Encounter for gynecological examination (general) (routine) without abnormal findings (principal)
CPT/HCPCS: 99397; 99459

== ENCOUNTER → 2025-01-06 08:27 | Outpatient (BNVA) | payer MEDICARE, SELFPAY | PROVIDERS: PCP Internal Medicine; Visit Provider Obstetrics & Gynecology | DX: Z01.419 Encounter for gynecological examination (general) (routine) without abnormal findings (principal) | CPT/HCPCS: 99397 ==

== ENCOUNTER 2025-01-25 09:05 | Outpatient (REF) | payer MEDICARE, SELFPAY ==
--- OUTSIDE RECORDS SUMMARY | 2025-01-25 09:28 | XMS_ITS | Patient Health Record ---
Author Organization [facility] Address [address] [place] [address] Care Team Providers Care Dramatic Director Name Role Phone Leyda LAW, Vannessa Primary Care Provider Tony Barney Jr Unavailable Reason For Referral No Information Medications Medication SIG (Take, Route, Fr equency, Duration) Notes Start Date End Date Status Sertraline HCl 100mg 07/22/2024 07/22/99 01 Active MoviPrep 100 GM as directed before colonoscopy Orally for 1 dose 01/10/2012 07/22/2024 Ac tive Problems Problem Type SNOMED Code ICD Code Onset Dates Problem Status W/U Status Risk Notes Problem Hemorrhoids (455.6) Active confirmed Plan Of Treatment Future Test Test Name Order Date COLONOSCOPY 01/10/2012 Insurance Providers Payer Name Payer Address Payer Phone Subscriber Number Group Number Insured Name Patient Relationship to Insured Coverage Start Date Coverage End Date [employer]IGNA [address] [place] [phone] [id number] EDUARDO GROVER Self - patient is the insured Medical (General) History Medical History History ICD Code Denies [place],DM,CVA,Lung disease,renal dise ase Surgical History Surgery Date(Month/Year) 1983
--- OUTSIDE RECORDS SUMMARY | 2025-01-25 09:28 | XMS_ITS | Patient Health Record ---
Author Organization [employer] [facility] Address [address] [place] [address] Care Team Providers Care Master Lay Out Specialist Name Role Phone NAGA WEI M.D. Primary Care Provider Quanga Marcia Andres Unavailable [phone] Reason For Referral No Information Medications Medication SIG (Take, Route, Fr equency, Duration) Notes Start Date End Date Status Multivitamins 1 ORAL daily; Duration: -3 [facility]Classana 1 Active Vagifem 10 MCG 1 VAGINAL THREE X A WEEK; Duration: -3 [facility] 06/30/2012 Active Vit D 1000IU 1 ORAL daily; Duration: -3 [facility] 05/16/2011 Active Sertraline HCl 100 MG 1 tablet Orally Once a day Active Estring 2 MG 1 ring Vaginal Q 3 M ONT; Duration: 90 days 10/21/2014 Active Estrace 0.1 MG/GM 1 GRAM Vaginal TWICE A WEEK; Duration: 365 days 10/21/2014 Active Calcium 600MG 1 ORAL twice daily; Duration: -3 Juan Alberto[facility] 05/16/2011 Active Social History Tobacco use other than smoking: Question Answer Notes Are you an other tobacco user? No Problems Problem Type SNOMED Code ICD Code Onset Dates Problem Status W/U Status Risk Notes Problem Postmenopausal atrophic vaginitis (20826732) Postmenopausal atrophic vaginitis (627.3) Active confirmed Diag Problem Gynecological examination normal (015024351924744) Routine gynecological examination (V72.31) Active confirmed Problem Screening for malignant neoplasm of cervix (254844414) Screening for malignant neoplasm of the cervix (V76.2) Active confirmed Diag Plan Of Treatment Pending Test Test Name Order Date MAMMOGRAM, SCREENING 10/21/2014 Insurance Providers Payer Name Payer Address Payer Phone Subscriber Number Group Number Insured Name Patient Relationship to Insured Coverage Start Date Coverage End Date CIGNA [address] [place] [address] [id number] JENNIE GROVER Spouse - patient is the spouse of the insured Medical (General) History Medical History History ICD Code Postmenopausal atrophic vaginitis 627.3 Surgical History Surgery Date(Month/Year)
[2025-01-25 11:48] LABS: Alanine Aminotransferase 16 U/L (0-31); Aspartate Amino Transferase 26 U/L (5-31); Cholesterol 221 mg/dL (<200); HDL Cholesterol 53 mg/dL (>40); Triglycerides 96 mg/dL (<150)
== END 2025-01-25 09:06 | disposition home or self-care (01) ==
LOC: HO.HMGCLDS 09:05
PROVIDERS: PCP Internal Medicine; Visit Provider Internal Medicine
DX: E78.5 Hyperlipidemia, unspecified (principal)
CPT/HCPCS: 36415; 80061; 82550; 84450; 84460

== ENCOUNTER 2025-01-29 10:19 | Outpatient (AMB) | payer MEDICARE, SELFPAY ==
--- NOTE | 2025-01-29 10:17 | A.OFFPC_ITS ---
Intake Visit Reasons: f/u lipids Iphone [phone] Intake Note: Pt is having a telehealth visit to discuss recent lab results Allergies No Known Allergies Allergy (Verified 01/29/25 10:27) Medication List - Last Reconciled 01/29/25 by Vannessa Crabtree MD cholecalciferol (vitamin D3) 125 mcg PO DAILY lorazepam 0.5 mg PO DAILY PRN multivitamin 1 tab PO DAILY omega 4-jlx-hxm-fish oil 1,000 (120-180) mg (Fish Oil) 1 cap PO DAILY rosuvastatin 5 mg PO 2XW 3 months sertraline 200 mg (2 x 100 mg) PO DAILY 90 days Tobacco use date assessed: 01/29/25 Fall risk assessment: No Falls in past year Last assessed Fall Risk: 01/29/25 Dental Screening Dental Screen Date: 01/29/25 Did you have a dental visit in the last 12 months?: Yes Did you have a dental problem in the last 6 months where you did not have access to dental care?: No Was dental information given to patient?: Patient has dentist HPI f/u lipids Iphone [phone] HPI Details - The patient is a 64-year-old female pr esenting with hyperlipidemia. - Her total cholesterol has decreased fr om 246 mg/dL to 221 mg/dL since September. - LDL cholesterol reduced from 175 mg/dL to 149 mg/dL with rosuvastatin taken twice weekly. - She has been following dietary modific ations and exercising regularly. - [facility] Medical History Osteopenia of multiple sites Family history of breast cancer in mother Atrophic vaginitis Dyspareunia in female Dyslipidemia (high LDL; low HDL) Generalized anxiety disorder Premature menopause History of tetanus, diphtheria, and acellular pertussis booster vaccination (Tdap) History of COVID-19 History of herpes zoster Surgical History Hx of colonoscopy History of bunionectomy Hx of section Hx of tonsillectomy Family History Father Hypertension Prostate cancer Parkinson disease Mother Hypertension Diabetes Breast cancer Maternal Aunt Breast cancer Ovarian cancer Social History Housing: House Alcohol intake: current Alcohol intake frequency: holidays/special occasions only Patient Tobacco Use Status: Former Tobacco user e-Cigarette/Vaping Use: Never Used service: No Current occupational status: employed 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 Ru Soto, Yue Stern, Jose Whitney and colleagues, with an educational elizabeth from [employer]. Review of Systems Const Denies body aches, Denies fatigue, Denies fever(s), Denies headache(s) and Denies weakness Eyes Details: goes to [facility] , has beginning cataracts and suspect glaucoma Denies change in vision, Denies eye discharge and Denies itchy eyes ENT Reports dizziness, Denies headache(s), Denies nasal congestion, Denies nasal discharge and Denies sore throat Card Denies chest pain, Denies lightheadedness, Denies palpitations and Denies dyspnea Resp Denies chest congestion, Denies cough, Denies dyspnea and Denies wheezing GI Denies abdominal pain, Denies change in bowel habits and Denies heartburn Denies hematuria, Denies urinary frequency, Denies difficulty voiding, Reports hot flashes, Denies dysuria, Denies prolapse symptoms, Denies urinary incontinence and Denies urinary urgency Musc Reports no additional complaints Skin/Breast Details: sees [facility] , has had several precancerous lesions removed on her face Denies breast pain, Denies breast mass, Denies lesions and Denies rash Neuro Reports dizziness, Denies headache(s) and Denies weakness Psych Details: sees Dr Kayode Singh Reports no additional complaints and Reports as per HPI Endo Denies fatigue, Denies polydipsia, Denies polyuria and Denies palpitations Addi/Lymph Denies easy bruising Aller/Immun Denies itchy eyes, Denies seasonal rhinorrhea and Denies wheezing Physical exam (Primary Care) Tobacco/Smoking Status: Tobacco use Status Tobacco use date assessed 01/29/25 01/29/25 10:18 Patient Tobacco Use Status Former Tobacco user 01/29/25 10:18 e-Cigarette/Vaping Use Never Used 01/29/25 10:18 Thrive Assessment: Date of Thrive Assessment Date Thrive assessed 09/25/24 01/29/25 10:18 Telehealth Telehealth Telehealth [facility] Location of provider rendering services: practice address Location of patient: address on file Patient Identification confirmed using: Name, : Yes Telehealth method: video Patient verbally consented to treatment: Yes Patient verbally consented to billing insurance company: Yes Patient informed of any privacy concerns related to visit: Yes Minutes spent on Phone/Video with Pt.: 15 Results Reviewed Results Reviewed: Name: Nikki Obrien Age/Sex: 64/F : 1960 Unit#: [id number] Attend Dr: Vannessa Crabtree MD Re01/25/25 Status: DEP REF Location: [facility] Disch: SPEC : [id number] JEFF: 01/25/25 STATUS: COMP REQ : [id number] RECD: 01/25/25-[address]: Vannessa Crabtree MD COMP: 01/25/25 ENTERED: 01/25/25-[address]: ORDERED: AST, ALT, CK Total, Lipid Panel Test Result Flag Reference AST (GOT) 26 5-31 U/L ALT (GPT) 16 0-31 U/L CK Total 109 26-140 U/L Triglyceride 96 <150 mg/dL Desirable Triglyceride: less than 150 mg/dL Borderline High Triglyceride 150-199 mg/dL High Triglyceride: 200-499 mg/dL Very High Triglyceride: greater than or equal to 5OO mg/dL Cholesterol 221 H <200 mg/dL Desirable Cholesterol: less than 200 mg/dL Borderline High Cholesterol: 200-239 mg/dL High Cholesterol: greater than 239 mg/dL LDL Calculated 149 H <100 mg/dL Desirable LDL: less than 100 mg/dL Near Optimal/Above Optimal LDL: 110-129 mg/dL Borderline High LDL: 130-159 mg/dL High LDL: 160-189 mg/dL Very High LDL: greater than or equal to 190 mg/dL HDL 53 >40 mg/dL Desirable HDL: greater than 40 mg/dL Note: This HDL assay may give artificially low results in patients with liver disease. Coding Level of Care Code Tele Est Pt Level 4 (54974) Diagnoses Dyslipidemia (high LDL; low HDL) E78.5 Assessment & Plan Assessment & Plan (1) Dyslipidemia (high LDL; low HDL): Code(s): E78.5 - Hyperlipidemia, unspecified Category: Medical Plan: The patient will increase the frequency of rosuvastatin intake to every other day to further manage her hyperlipidemia. She will continue her current dietary and exercise regimen, as well as CoQ10 supplementation. A follow-up lipid panel is scheduled for June, with blood work to be completed prior to her next appointment on June 15. Patient was informed and verbally consented to the use of an ambient scribe for clinic note documentation during this visit. Orders: Orders Aspartate Amino Transferase 06/05/25 E28.319 - Asymptomatic premature menopause, E78.5 - Hyperlipidemia, unspecified, M85.89 - Other specified disorders of bone density and structure, multiple sites, Z13.1 - Encounter for screening for diabetes mellitus Alanine Aminotransferase 06/05/25 E28.319 - Asymptomatic premature menopause, E78.5 - Hyperlipidemia, unspecified, M85.89 - Other specified disorders of bone density and structure, multiple sites, Z13.1 - Encounter for screening for diabetes mellitus Basic Metabolic Panel Fasting 06/05/25 E28.319 - Asymptomatic premature menopause, E78.5 - Hyperlipidemia, unspecified, M85.89 - Other specified disord ers of bone density and structure, multiple sites, Z13.1 - Encounter for screening for diabetes mellitus Lipid Panel 06/05/25 E28.319 - Asymptomatic premature menopause, E78.5 - Hyperlipidemia, unspecified, M85.89 - Other specified disorders of bone density and structure, multiple sites, Z13.1 - Encounter for screening for diabetes mellitus Creatine Kinase Total 06/05/25 E28.319 - Asymptomatic premature menopause, E78.5 - Hyperlipidemia, unspecified, M85.89 - Other specified disorders of bone density and structure, multiple sites, Z13.1 - Encounter for screening for diabetes mellitus Vitamin D 25-OH Total 06/05/25 E28.319 - Asymptomatic premature menopause, E78.5 - Hyperlipidemia, unspecified, M85.89 - Other specified disorders of bone density and structure, multiple sites, Z13.1 - Encounter for screening for diabetes mellitus Hemoglobin A1c 06/05/25 E28.319 - Asymptomatic premature menopause, E78.5 - Hyperlipidemia, unspecified, M85.89 - Other specified disorders of bone density and structure, multiple sites, Z13.1 - Encounter for screening for diabetes mellitus Medications: Changed From rosuvastatin 5 mg PO 2XW 3 months 26 tabs 2RF E78.5 - Hyperlipidemia, unsp ecified To rosuvastatin 5 mg PO Q2D 45 tabs 2RF 3 months E78.5 - Hyperlipidemia, unspecified
--- OUTSIDE RECORDS SUMMARY | 2025-01-29 10:48 | XMS_ITS | Patient Health Record ---
Author Organization [facility] Address [address] [place] [address] Care Team Providers Care Floor Sanding Machine Operator Name Role Phone NAGA WEI M.D. Primary Care Provider Marcia Marquez Unavailable [phone] Reason For Referral No Information Medications Medication SIG (Take, Route, Fr equency, Duration) Notes Start Date End Date Status Multivitamins 1 ORAL daily; Duration: -3 Juan Alberto-Vertigo 1 Active Vagifem 10 MCG 1 VAGINAL [...] Status Risk Notes Problem Postmenopausal atrophic vaginitis (43576990) Postmenopausal atrophic vaginitis (627.3) Active confirmed Diag Problem Routine gynecological examination (V72.31) Active confirmed Problem Screening for malignant neoplasm of cervix (983881754) Screening for malignant neoplasm of the cervix (V76.2) Active confirmed Diag Plan Of Treatment Pending Test Test Name Order Date MAMMOGRAM, SCREENING 10/21/2014 Insurance Providers Payer Name Payer Address Payer Phone Subscriber Number Group Number Insured Name Patient Relationship to Insured Coverage Start Date Coverage End Date CIGNA [address] [place], [place] [address] [id number] JENNIE GROVER Spouse - patient is the spouse of the insured Medical (General) History Medical History History ICD Code Postmenopausal atrophic vaginitis 627.3 Surgical History Surgery Date(Month/Year)
--- OUTSIDE RECORDS SUMMARY | 2025-01-29 10:48 | XMS_ITS | Patient Health Record ---
Author Organization [facility] Address [address] [place] [address] Care Team Providers Care Meat Manager Name Role Phone Leyda LAW, Vannessa Primary Care Provider Og Gallagher Jr, Tony Jones Reason For Referral No Information Medications Medication SIG (Take, Route, Fr equency, Duration) Notes Start Date End Date Status Sertraline HCl 100mg 07/22/2024 07/22/99 01 Active MoviPrep 100 GM as directed before colonoscopy Orally for 1 dose 01/10/2012 07/22/2024 Ac tive Problems Problem Type SNOMED Code ICD Code Onset Dates Problem Status W/U Status Risk Notes Problem Hemorrhoids (455.6) Active confirmed Encounters Encounter Location Date Provider Diagnosis [facility] [address] [place] [phone] 01/28/2025 Tony Gallagher Jr Plan Of Treatment Future Test Test Name Order Date COLONOSCOPY 01/10/2012 Insurance Providers Payer Name Payer Address Payer Phone Subscriber Number Group Number Insured Name Patient Relationship to Insured Coverage Start Date Coverage End Date CIGNA [address] [address] [address] [facility] [place] [phone] [id number] EDUARDO GROVER Self - patient is the insured Medical (General) History Medical History History ICD Code Denies [place],DM,CVA,Lung disease,renal dise ase Surgical History Surgery Date(Month/Year) 1984
== END 2025-01-29 11:37 | disposition home or self-care (01) ==
LOC: HO.HMCC 10:19
PROVIDERS: PCP Internal Medicine; Visit Provider Internal Medicine
DX: E78.5 Hyperlipidemia, unspecified (principal)

== ENCOUNTER 2025-06-02 14:27 | Outpatient (AMB) | payer MEDICARE, SELFPAY ==
--- NOTE | 2025-06-02 14:58 | A.OFFPSYCH_ITS ---
Intake Intake Visit Reasons: depression Allergies No Known Allergies Allergy (Verified 01/29/25 10:27) Medication List - Last Reconciled 06/02/25 by Fabio Singh MD cholecalciferol (vitamin D3) 125 mcg PO DAILY lorazepam 0.5 mg PO DAILY PRN multivitamin 1 tab PO DAILY omega 6-wvd-oht-fish oil 1,000 (120-180) mg (Fish Oil) 1 cap PO DAILY rosuvastatin 5 mg PO Q2D 3 months sertraline 200 mg (2 x 100 mg) PO DAILY 90 days HPI- Psychiatric Chief Complaint: depression HPI Narrative: 08/02/24, 2:14 PM (33m) PATIENT SUMMARY The patient attended the psychiatry appointment to discuss ongoing emotional distress following the of a close friend. HPI The patient reported that it had been difficult emotionally due to the recent birthday of their best friend, who had . The patient expressed that this friend was very significant in their life and had suffered from kidney cancer that metastasized to the lungs and bones. The emotional toll of this loss has been challenging for the patient, as it was a significant relationship. MENTAL STATUS The patient stated their mood as melancholy. PAIN The patient did not report any physical pain during the session. BACKGROUND The patient did not mention any new allergies or medications. The focus of the discussion was on emotional symptoms rather than physical ones. Past Psychiatric History: hx recurrent dysphoria past panic dx Mental Status Exam Mental Status Exam Narrative: Patient casually dressed good eye contact. Speech somewhat soft clear goal- directed. 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 Patient with frequent melancholy when describing loss of her friend. PHQ-9 and OUSMANE not elevated but seems incongruous to how patient's presenting. No SI no psychosis constricted affect appropriate to mood Assessment and Plan Assessment & Plan (1) Grief reaction: Status: Acute Code(s): F43.21 - Adjustment disorder with depressed mood (2) Generalized anxiety disorder: Status: Acute Code(s): F41.1 - Generalized anxiety disorder Plan ASSESSMENT The primary consideration is grief-related depression, given the patient's description of melancholy feelings and recent bereavement. Differential diagnosis includes adjustment disorder with depressed mood, as the symptoms appear directly related to the recent loss of the patient's friend. PLAN The plan includes continued support through regular psychiatric follow-ups to monitor mood and assess the progression of symptoms. I recommended grief counseling to provide the patient with additional support and coping strategies. Medication continue sertraline lorazepam PRN, but future considerations might be necessary depending on symptom progression. Trying to sort through clinical depression triggered by of friend versus normal grief. cont sertraline 200 mg Orders: Orders TSH reflex Free T4 06/08/25 F33.42 - Major depressive disorder, recurrent, in full remission, F43.21 - Adjustment disorder with depressed mood, R41.89 - Other symptoms and signs involving cognitive functions and awareness, R46.89 - Other symptoms and signs involving appearance and behavior CRP High Sensitivity 06/08/25 F33.42 - Major depressive disorder, recurrent, in full remission, F43.21 - Adjustment disorder with depressed mood, R41.89 - Other symptoms and signs involving cognitive functions and awareness, R46.89 - Other symptoms and signs involving appearance and behavior Vitamin B12 and Folate 06/08/25 F33.42 - Major depressive disorder, recurrent, in full remission, F43.21 - Adjustment disorder with depressed mood, R41.89 - Other symptoms and signs involving cognitive functions and awareness, R46.89 - Other symptoms and signs involving appearance and behavior Counseling and coordination of Care Details: I spent [] minutes reviewing the record, seeing the patient and documenting in the medical record. Counseling provided to the patient/caregiver as outlined below. Addressed patient/caregiver concerns regarding current medication regime including effective adherence. Addressed patient/caregiver concerns regarding diagnosis and prognosis including accuracy of diagnosis, prognosis over time, impact of diagnosis. Addressed patient/caregiver concerns regarding impact of recent stressors. [facility] Medical History Osteopenia of multiple sites Family history of breast cancer in mother Atrophic vaginitis Dyspareunia in female Dyslipidemia (high LDL; low HDL) Generalized anxiety disorder Premature menopause History of tetanus, diphtheria, and acellular pertussis booster vaccination (Tdap) History of COVID-19 History of herpes zoster Surgical History Hx of colonoscopy History of bunionectomy Hx of section Hx of tonsillectomy Family History Father Hypertension Prostate cancer Parkinson disease Mother Hypertension Diabetes Breast cancer Maternal Aunt Breast cancer Ovarian cancer Social History Housing: House Alcohol intake: current Alcohol intake frequency: holidays/special occasions only Patient Tobacco Use Status: Former Tobacco user e-Cigarette/Vaping Use: Never Used service: No Current occupational status: employed 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
--- OUTSIDE RECORDS SUMMARY | 2025-06-02 17:54 | XMS_ITS | Patient Health Record ---
Author Organization [facility] Address [address] [place] [address] Care Team Providers Care Flake Or Shred Roll Operator Name Role Phone Leyda LAW, Vannessa Primary Care Provider Og Gallagher Jr, Tony Jones [phone] Reason For Referral No Information Medications Medication SIG (Take, Route, Fr equency, Duration) Notes Start Date End Date Status Sertraline HCl 100mg 07/22/2024 07/22/99 Active MoviPrep 100 GM as directed before colonoscopy Orally; Duration: 1 dose 01/10/2012 07/22/2024 Active Problems Problem Type SNOMED Code ICD Code Onset Dates Problem Status W/U Status Risk Notes Problem Hemorrhoids (84219551) Hemorrhoids (455.6) Active confirmed Encounters Encounter Location Date Provider Diagnosis [facility] [address] [place] [phone] 01/28/2025 Tony Gallagher Jr Plan Of Treatment Future Test Test Name Order Date COLONOSCOPY 01/10/2012 Insurance Providers Payer Name Payer Address Payer Phone Subscriber Number Group Number Insured Name Patient Relationship to Insured Coverage Start Date Coverage End Date [employer]IG[employer] [address] [facility] [place] [phone] [id number] EDUARDO GROVER Self - patient is the insured Medical (General) History Medical History History ICD Code Denies PR,DM,CVA,Lung disease,renal dise ase Surgical History Surgery Date(Month/Year) 1983
--- OUTSIDE RECORDS SUMMARY | 2025-06-02 17:54 | XMS_ITS | Patient Health Record ---
Author Organization [facility] Address [address] [place] [address] Care Team Providers Care Drying Machine Operator Name Role Phone NAGA WEI M.D. Primary Care Provider Quanga Marcia Andres Unavailable [phone] Reason For Referral No Information Medications Medication SIG (Take, Route, Fr equency, Duration) Notes Start Date End Date Status Multivitamins 1 ORAL daily; Duration: -3 Juan Alberto-Ratio 1 Active Vagifem 10 MCG 1 VAGINAL [...] Status Risk Notes Problem Postmenopausal atrophic vaginitis (84220875) Postmenopausal atrophic vaginitis (627.3) Active confirmed Diag Problem Gynecological examination normal (010403031424369) Routine gynecological examination (V72.31) Active confirmed Problem Screening for malignant neoplasm of cervix (904195278) Screening for malignant neoplasm of the cervix (V76.2) Active confirmed Diag Plan Of Treatment Pending Test Test Name Order Date MAMMOGRAM, SCREENING 10/21/2014 Insurance Providers Payer Name Payer Address Payer Phone Subscriber Number Group Number Insured Name Patient Relationship to Insured Coverage Start Date Coverage End Date CIGNA [address] [place] [address] [phone] [id number] JENNIE GROVER Spouse - patient is the spouse of the insured Medical (General) History Medical History History ICD Code Postmenopausal atrophic vaginitis 627.3 Surgical History Surgery Date(Month/Year)
== END 2025-06-02 15:28 | disposition home or self-care (01) ==
LOC: HO.HOP 14:27
PROVIDERS: PCP Internal Medicine; Visit Provider Psychiatry & Neurology Psychiatry
DX: F43.21 Adjustment disorder with depressed mood (principal); F41.1 Generalized anxiety disorder
CPT/HCPCS: 90833; 99213

== ENCOUNTER → 2025-06-02 14:27 | Outpatient (BNVA) | payer MEDICARE, SELFPAY | PROVIDERS: PCP Internal Medicine; Visit Provider Psychiatry & Neurology Psychiatry | DX: F43.21 Adjustment disorder with depressed mood (principal); F41.1 Generalized anxiety disorder | CPT/HCPCS: 99212 ==

== ENCOUNTER 2025-06-08 08:09 | Outpatient (REF) | payer MEDICARE, SELFPAY ==
[2025-06-08 11:20] LABS: Alanine Aminotransferase 15 U/L (0-31); Anion Gap 16 (12-20); Aspartate Amino Transferase 27 U/L (5-31); Blood Urea Nitrogen 16 mg/dL (9-16); Calcium 9.8 mg/dL (8.4-10.2); Carbon Dioxide 27 mmol/L (22-29); Chloride 104 mmol/L (96-108); Cholesterol 215 mg/dL (<200); Estimated Glomerular Filt Rate > 60; HDL Cholesterol 61 mg/dL (>40); Potassium 4.6 mmol/L (3.3-5.1); Sodium 142 mmol/L (135-145); Triglycerides 74 mg/dL (<150)
[2025-06-08 11:45] LABS: Folate 12.5 ng/mL (> or = 4.0); Vitamin B12 460 pg/mL (200-900)
--- OUTSIDE RECORDS SUMMARY | 2025-06-08 13:43 | XMS_ITS | Patient Health Record ---
Author Organization [facility] Address [address] [place] [address] Care Team Providers Care Oracle Fusion Middleware Architect Name Role Phone NAGA WEI M.D. Primary Care Provider Quanga Marcia Andres Unavailable [phone] Reason For Referral No Information Medications Medication SIG (Take, Route, Fr equency, Duration) Notes Start Date End Date Status Multivitamins 1 ORAL daily; Duration: -3 Juan Alberto[employer] 1 Active Vagifem 10 MCG 1 VAGINAL [...] Status Risk Notes Problem Postmenopausal atrophic vaginitis (86234829) Postmenopausal atrophic vaginitis (627.3) Active confirmed Diag Problem Gynecological examination normal (277559298725106) Routine gynecological examination (V72.31) Active confirmed Problem Screening for malignant neoplasm of cervix (965174103) Screening for malignant neoplasm of the cervix (V76.2) Active confirmed Diag Plan Of Treatment Pending Test Test Name Order Date MAMMOGRAM, SCREENING 10/21/2014 Insurance Providers Payer Name Payer Address Payer Phone Subscriber Number Group Number Insured Name Patient Relationship to Insured Coverage Start Date Coverage End Date CIGNA [address] [place] [address] [id number] JENNIE GROVER Spouse - patient is the spouse of the insured Medical (General) History Medical History History ICD Code Postmenopausal atrophic vaginitis 627.3 Surgical History Surgery Date(Month/Year)
--- OUTSIDE RECORDS SUMMARY | 2025-06-08 13:43 | XMS_ITS | Patient Health Record ---
Author Organization [facility] Address [address] [place] [address] Care Team Providers Care Patient Assistant Name Role Phone Leyda LAW, Vannessa Primary Care Provider Og Gallagher Jr, Tony Jones Reason For Referral No Information Medications Medication SIG (Take, Route, Frequency, Duration) Notes Start Date End Date Status Sertraline HCl 100mg 07/22/18 Active MoviPrep 100 GM Solution Reconstituted as directed before colonoscopy Orally; Duration: 1 dose 01/10/2012 Active Social History Social History Additional Details Category Social Info Options Details Miscellaneous: Marital status: 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 [employer] m Problems Problem Type SNOMED Code ICD Code Onset Dates Problem Status W/U Status Risk Notes Problem Hemorrhoids (88930140) Hemorrhoids (455.6) Active confirmed Encounters Encounter Location Date Provider Diagnosis [facility] [address] [address] 01/28/2025 Tony Gallagher Jr Plan Of Treatment Future Test Test Name Order Date COLONOSCOPY 01/10/2012 Insurance Providers Payer Name Payer Address Payer Phone Subscriber Number Group Number Insured Name Patient Relationship to Insured Coverage Start Date Coverage End Date CIGNA [address] [facility] [place] [phone] [id number] EDUARDO GROVER Self - patient is the insured Medical (General) History Medical History History ICD Code Denies [place],DM,CVA,Lung disease,renal dise ase Surgical History Surgery Date(Month/Year) 1983
== END 2025-06-08 08:10 | disposition home or self-care (01) ==
LOC: HO.HMGCLDS 08:09
PROVIDERS: Absent Provider Psychiatry & Neurology Psychiatry; PCP Internal Medicine; Visit Provider Internal Medicine
DX: F33.42 Major depressive disorder, recurrent, in full remission (principal); F43.21 Adjustment disorder with depressed mood; M85.89 Other specified disorders of bone density and structure, multiple sites; R41.89 Other symptoms and signs involving cognitive functions and awareness; E78.5 Hyperlipidemia, unspecified; E28.319 Asymptomatic premature menopause; Z13.1 Encounter for screening for diabetes mellitus
CPT/HCPCS: 36415; 80048; 80061; 82306; 82550; 82607; 82746; 83036; 84443; 84450; 84460; 86141

== ENCOUNTER 2025-06-30 14:51 | Outpatient (AMB) | payer OTHER, SELFPAY ==
--- NOTE | 2025-06-30 14:54 | MHC.PC.OV ---
Vital Signs 06/30/25 14:59 Height 4 ft 11 in Weight 134 lb BMI 27.1 BP 100/70 Blood Pressure Location Lt brachial Position Sitting Respiration 16 Pulse 73 Pulse Source Pulse Oximeter Temp 98.2 F Temp Source Oral Pulse Oximetry (%) 97 Oxygen Delivery Method Room Air Intake Visit Reasons: Annual PE Intake Note: Pt is here today for her PE: Last mammogram 08/27/24, bone density scan 08/16/23, colonoscopy 04/16/12 Alternative Dispute Resolution Mediator Required: No Allergies No Known Allergies Allergy (Verified 06/30/25 15:07) Medication List - Last Reconciled 06/30/25 by Vannessa Crabtree MD cholecalciferol (vitamin D3) 125 mcg PO DAILY lorazepam 0.5 mg PO DAILY PRN multivitamin 1 tab PO DAILY omega 4-ene-oky-fish oil 1,000 (120-180) mg (Fish Oil) 1 cap PO DAILY rosuvastatin 5 mg PO Q2D 3 months sertraline 200 mg (2 x 100 mg) PO DAILY 90 days Tobacco use date assessed: 06/30/25 Fall risk assessment: No Falls in past year Last assessed Fall Risk: 06/30/25 Dental Screening Dental Screen Date: 06/30/25 Did you have a dental visit in the last 12 months?: Yes Did you have a dental problem in the last 6 months where you did not have access to dental care?: No Was dental information given to patient?: Patient has dentist HPI Annual PE HPI Details 65-YEAR-OLD LADY with history of dyslipidemia, depression with anxiety, followed by Dr. Singh, osteopenia multiple sites,, here today for physical exam. She is up-to-date with her screening mammogram done earlier this year, had a bone density done in 2023 which showed presence of osteopenia in multiple sites, due for a repeat bone density in 2025. No history of fractures. She had a Cologuard testing done in 2022 which came back negative per patient, due again for r repeat colon cancer screening in 2025. She has been, with no complaints at present time. [facility] Medical History Osteopenia of multiple sites Family history of breast cancer in mother Atrophic vaginitis Dyspareunia in female Dyslipidemia (high LDL; low HDL) Generalized anxiety disorder Premature menopause History of tetanus, diphtheria, and acellular pertussis booster vaccination (Tdap) History of COVID-19 History of herpes zoster Surgical History Hx of colonoscopy History of bunionectomy Hx of section Hx of tonsillectomy Family History Father Hypertension Prostate cancer Parkinson disease Mother Hypertension Diabetes Breast cancer Maternal Aunt Breast cancer Ovarian cancer Social History Housing: House Alcohol intake: current Alcohol intake frequency: holidays/special occasions only Patient Tobacco Use Status: Former Tobacco user e-Cigarette/Vaping Use: Never Used service: No Current occupational status: employed 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 1. Little interest or pleasure in doing things: not at all 2. Feeling down, depressed, or hopeless: not at all 3. Trouble falling or staying asleep, or sleeping too much: not at all 4. Feeling tired or having little energy: not at all 5. Poor appetite or overeating: not at all 6. Feeling bad about yourself - or that you are a failure or have let yourself or your family down: not at all 7. Trouble concentrating on things, such as reading the newspaper or watching television: not at all 8. Moving or speaking so slowly that other people could have noticed. Or the opposite - being so fidgety or restless that you have been moving around a lot more than usual: not at all 9. Thoughts that you would be better off or of hurting yourself in some way: not at all Total score: 0 Depression Screening Interpretation: Negative Depression Screening Done: Yes Source: Developed by Drs. Ru Soto, Yue Stern, Jose Whitney and colleagues, with an educational elizabeth from [employer]. Thrive Questionnaire Date Thrive assessed: 09/25/24 I am a: Patient What is your living situation today?: I have a steady place to live Within the past 12 months, did the food you bought not last and you didn't have the money to get more?: Never true Within the past 12 months, did you worry whether your food would run out before you got money to buy more?: Never true Do you have trouble paying for medicines?: No Do you have trouble getting transportation to medical appointments?: No Do you have trouble paying your heating and electricity bill?: No Do you have trouble taking care of your child, family member or friend?: No Do you have trouble with day-to-day activities such as bathing, preparing meals, shopping, managing finances, etc.?: No Are you currently unemployed and looking for a job?: No Are you interested in more education?: No Please select the resources that you would like help with: None Currently or been in a relationship where the following occur: No concerns reported THRIVE Score: 0 AUDIT C Alcohol Use Questionnaire (AUDIT-C) 1. How often do you have a drink containing alcohol?: Monthly or less Total Score: 1 OUSMANE-7 AMB Questionnaire OUSMANE-7 Date OUSMANE - 7 assessed: 09/25/24 Feeling nervous, anxious, or on edge: 0 = Not at all Not being able to stop or control worryin = Not at all Worrying too much about different things: 0 = Not at all Trouble relaxin = Not at all Being so restless that it is hard to sit still: 0 = Not at all Becoming easily annoyed or irritable: 0 = Not at all Feeling afraid as if something awful might happen: 0 = Not at all Total OUSMANE-7 score (0-4 normal; 5-9 mild; 10-14 moderate; 15-21 severe): 0 Source: Developed by Drs. Ru Soto, Yue Stern, Jose Whitney and colleagues, with an educational elizabeth from [employer]. Review of Systems Const Denies body aches, Denies fatigue, Denies fever(s), Denies headache(s) and Denies weakness Eyes Details: [facility], has dry eyes Denies change in vision and Denies itchy eyes ENT Reports dizziness, Denies headache(s), Denies nasal congestion, Denies nasal discharge and Denies sore throat Card Denies chest pain, Denies lightheadedness, Denies palpitations and Denies dyspnea Resp Denies chest congestion, Denies cough, Denies dyspnea and Denies wheezing GI Denies abdominal pain, Denies change in bowel habits and Denies heartburn Denies hematuria, Denies urinary frequency, Denies difficulty voiding, Reports hot flashes, Denies dysuria, Denies prolapse symptoms, Denies urinary incontinence and Denies urinary urgency Musc Reports no additional complaints Skin/Breast Details: sees [facility] , has had several precancerous lesions removed on her face Denies breast pain, Denies breast mass, Denies lesions and Denies rash Neuro Reports dizziness, Denies headache(s) and Denies weakness Psych Details: sees Dr Kayode Singh Reports no additional complaints and Reports as per HPI Endo Denies fatigue, Denies polydipsia, Denies polyuria and Denies palpitations Addi/Lymph Denies easy bruising Aller/Immun Denies itchy eyes, Denies seasonal rhinorrhea and Denies wheezing Physical exam (Primary Care) Vital Signs: Last Vital Signs Temp 98.2 F 06/30/25 14:59 Pulse 73 06/30/25 14:59 Resp 16 06/30/25 14:59 BP 100/70 06/30/25 14:59 Pulse Ox 97 06/30/25 14:59 Oxygen Delivery Method Room Air 06/30/25 14:59 BMI result Body Mass Index 27.1 Tobacco/Smoking Status: Tobacco use Status Tobacco use date assessed 06/30/25 06/30/25 14:59 Patient Tobacco Use Status Former Tobacco user 06/30/25 14:55 e-Cigarette/Vaping Use Never Used 06/30/25 14:55 PHQ-9: PHQ-9 Score PHQ-9: Total score 0 06/30/25 15:09 Depression Screening Interpretation: Negative Thrive Assessment: Date of Thrive Assessment Date Thrive assessed 09/25/24 06/30/25 14:55 Currently or been in a relationship where the following occur: No concerns reported Const Other: Alert oriented x3, no acute distress noted ambulatory with normal gait HENMT Head: Yes atraumatic Ears: external ears normal General nose exam: Normal external nose present Face and sinus: Yes face symmetric Mouth: Normal oral and palatal mucosa present and moist mucous membranes Eyes General: appearance normal, both eyes and all related structures Neck Other: Thyroid nonpalpable nontender to palpation Neck: Yes full ROM, Yes no lymphadenopathy and Yes supple Chest Chest palpation & inspection: normal inspection of the chest Breast/axilla palpation: normal palpation of the breasts Resp Auscultation: clear to auscultation bilaterally Cardio Other: S1-S2 present regular rate and rhythm GI Inspection: Yes normal to inspection Palpation (GI): Soft to palpation, nontender, no guarding and no masses Auscultation: normal bowel sounds General: Yes no CVA tenderness Back/Spine/Pelvis Back: no CVA tenderness and No back tenderness Skin General skin exam: no rashes or lesions noted Neuro General: gait normal, tone normal, moves all extremities, Normal light touch and pain sensation, no focal motor deficits and CN's II-XI intact bilaterally Extrem General: Yes full ROM, Yes no joint enlargement, Yes no clubbing, cyanosis or edema, Yes no calf tenderness and Yes normal gait Psych Appearance: grossly normal and well kempt Mental Status: mental status grossly normal Speech and movement: Normal speech and movement present Affect: normal affect Results Reviewed Results Reviewed: Name: Nikki Obrien Age/Sex: 65/F : 1960 Unit#: [id number] Attend Dr: Vannessa Crabtree MD Re06/08/25 Status: DEP REF Location: [facility] Disch: SPEC : [id number] JEFF: 06/08/25 STATUS: COMP REQ : [id number] RECD: 06/08/[address]: Fabio Singh MD COMP: 06/08/25 ENTERED: 06/08/[address]: Vannessa Crabtree MD ORDERED: Met Prof Fast, AST, ALT, CK Total, Lipid Panel, TSH Rflx Test Result Flag Reference Sodium 142 135-145 mmol/L Potassium 4.6 3.3-5.1 mmol/L CL 104 96-108 mmol/L CO2 27 22-29 mmol/L Gap 16 12-20 BUN 16 9-16 mg/dL Creat 0.69 0.5-1.4 mg/dL eGFR > 60 Chronic Kidney Disease: Estimated GFR < 60 mL/min/1.73m2 Severe Kidney Disease: Estimated GFR < 15 mL/min/1.73m2 FBS 85 60-99 mg/dL CA 9.8 8.4-10.2 mg/dL AST (GOT) 27 5-31 U/L ALT (GPT) 15 0-31 U/L CK Total 60 26-140 U/L Triglyceride 74 <150 mg/dL Desirable Triglyceride: less than 150 mg/dL Borderline High Triglyceride 150-199 mg/dL High Triglyceride: 200-499 mg/dL Very High Triglyceride: greater than or equal to 5OO mg/dL Cholesterol 215 H <200 mg/dL Desirable Cholesterol: less than 200 mg/dL Borderline High Cholesterol: 200-239 mg/dL High Cholesterol: greater than 239 mg/dL LDL Calculated 140 H <100 mg/dL Desirable LDL: less than 100 mg/dL Near Optimal/Above Optimal LDL: 110-129 mg/dL Borderline High LDL: 130-159 mg/dL High LDL: 160-189 mg/dL Very High LDL: greater than or equal to 190 mg/dL HDL 61 >40 mg/dL Desirable HDL: greater than 40 mg/dL Note: This HDL assay may give artificially low results in patients with liver disease. TSH 2.92 0.32-4.0 uIU/mL Coding Level of Care Code Est Pt Prev Care >65y(84393) Diagnoses Annual visit for general adult medical examination with abnormal findings Z00.01 Osteopenia of multiple sites M85.89 Dyslipidemia (high LDL; low HDL) E78.5 Major depression, recurrent, full remission F33.42 Assessment & Plan Assessment & Plan (1) Annual visit for general adult medical examination with abnormal findings: Code(s): Z00.01 - Encounter for general adult medical examination with abnormal findings Plan: Recent fasting lab results reviewed with patient. Continue with regular dental visit every 6 months and regular eye exams, at least every 2 years, sees [facility]. Take adequate calcium in diet and vitamin-D 3 at 2000 IU per cap once a day, in addition to weight-bearing exercises to help maintain good muscle tone and weight control. Instructed to do self-breast exam, and continue to get yearly mammogram. Repeat bone density scan ordered also together with mammogram for next year at [facility]. Up-to-date with her colon cancer screening, repeat Cologuard testing ordered. Patient already up-to-date with her pneumonia vaccine but does not want to get flu shot or COVID booster. Plan to get the shingles vaccine (2) Osteopenia of multiple sites: Code(s): M85.89 - Other specified disorders of bone density and structure, multiple sites Category: Medical Plan: Reinforced importance to do regular weight-bearing exercise, take adequate calcium from dietary sources and continue taking [id number] vitamin D3 2000 units daily ordered a repeat bone density scan to be done in August next year with her screening mammogram at [facility] (3) Dyslipidemia (high LDL; low HDL): Code(s): E78.5 - Hyperlipidemia, unspecified Category: Medical Plan: Reviewed recent fasting labs which showed LDL cholesterol still in a goal 140 mg/dL but lower than last check. Increase dose of rosuvastatin to 5 mg taken once a day now Fasting lipid panel ordered to be repeated again in October 2025, (4) Major depression, recurrent, full remission: Code(s): F33.42 - Major depressive disorder, recurrent, in full remission Category: Medical Plan: Currently followed by Dr. Singh, taking sertraline 200 mg daily and takes lorazepam as needed for acute attacks of anxiety Orders: Orders XR DEXA axial skeleton 08/28/25 M85.89 - Other specified disorders of bone density and structure, multiple sites, Z12.31 - Encounter for screening mammogram for malignant neoplasm of breast Lipid Panel 10/20/25 E78.5 - Hyperlipidemia, unspecified Alanine Aminotransferase 10/20/25 E78.5 - Hyperlipidemia, unspecified Aspartate Amino Transferase 10/20/25 E78.5 - Hyperlipidemia, unspecified MM tomosynthesis screening BI 08/28/25 M85.89 - Other specified disorders of bone density and structure, multiple sites, Z12.31 - Encounter for screening mammogram for malignant neoplasm of breast Referrals Cologuard Test Z12.11 - Encounter for screening for malignant neoplasm of colon, Z12.12 - Encounter for screening for malignant neoplasm of rectum Medications: Changed From rosuvastatin 5 mg PO Q2D 3 months 45 tabs 2RF E78.5 - Hyperlipidemia, unspecified To rosuvastatin 5 mg PO DAILY 90 tabs 2RF 3 months E78.5 - Hyperlipidemia, unspecified
[2025-06-30 14:59] VITALS: BP 100/70; PULSE 73; RESP 16; TEMP 36.8; O2SAT 97; BMI 27.1
--- OUTSIDE RECORDS SUMMARY | 2025-06-30 23:24 | XMS_ITS | Patient Health Record ---
Author Organization [employer] [facility] Address [address] [place] [address] Care Team Providers Care Otolaryngology Physician Name Role Phone NAGA WEI M.D. Primary Care Provider Quanga Marcia Andres Unavailable [phone] Reason For Referral No Information Medications Medication SIG (Take, Route, Fr equency, Duration) Notes Start Date End Date Status Multivitamins 1 ORAL daily; Duration: -3 Juan [employer]to[employer] 1 Active Vagifem 10 MCG 1 VAGINAL [...] Status Risk Notes Problem Postmenopausal atrophic vaginitis (25159031) Postmenopausal atrophic vaginitis (627.3) Active confirmed Diag Problem Gynecological examination normal (396716702131273) Routine gynecological examination (V72.31) Active confirmed Problem Screening for malignant neoplasm of cervix (840143306) Screening for malignant neoplasm of the cervix (V76.2) Active confirmed Diag Plan Of Treatment Pending Test Test Name Order Date MAMMOGRAM, SCREENING 10/21/2014 Insurance Providers Payer Name Payer Address Payer Phone Subscriber Number Group Number Insured Name Patient Relationship to Insured Coverage Start Date Coverage End Date CIGNA [address] [place] [address] [id number] JENNIE GROVER Spouse - patient is the spouse of the insured Medical (General) History Medical History History ICD Code Postmenopausal atrophic vaginitis 627.3 Surgical History Surgery Date(Month/Year)
== END 2025-06-30 15:51 | disposition home or self-care (01) ==
LOC: HO.HMCC 14:52
PROVIDERS: PCP Internal Medicine; Visit Provider Internal Medicine
DX: Z00.01 Encounter for general adult medical examination with abnormal findings (principal); M85.89 Other specified disorders of bone density and structure, multiple sites; E78.5 Hyperlipidemia, unspecified; F33.42 Major depressive disorder, recurrent, in full remission

== ENCOUNTER 2025-07-06 11:35 | Outpatient (REF) | payer MEDICARE, SELFPAY ==
[2025-07-06 13:54] LABS: Appearance Urine Cloudy; PH 5.0 (5.0-9.0); Specific Gravity - Urine 1.015 (1.005-1.025); UMIC TRIGGER UA YES
--- OUTSIDE RECORDS SUMMARY | 2025-07-06 15:21 | XMS_ITS | Patient Health Record ---
Author Organization [facility] Address [address] [place] [address] Care Team Providers Care Agricultural Plow Operator Name Role Phone Leyda LAW, Vannessa [...] Status W/U Status Risk Notes Problem Hemorrhoids (49015599) Hemorrhoids (455.6) Active confirmed Encounters Encounter Location Date Provider Diagnosis [facility] [address] [address] 01/28/2025 Tony Gallagher Jr Plan Of Treatment Future Test Test Name Order Date COLONOSCOPY 01/10/2012 Insurance Providers Payer Name Payer Address Payer Phone Subscriber Number Group Number Insured Name Patient Relationship to Insured Coverage Start Date Coverage End Date [employer]IGNA [address] [facility] [place] [phone] [id number] EDUARDO GROVER Self - patient is the insured Medical (General) History Medical History History ICD Code Denies [place],DM,CVA,Lung disease,renal dise ase Surgical History Surgery Date(Month/Year) 1983
--- OUTSIDE RECORDS SUMMARY | 2025-07-06 15:21 | XMS_ITS | Patient Health Record ---
Author Organization [employer] [facility] Address [address] [place] [address] Care Team Providers Care Livery Car Driver Name Role Phone NAGA WEI M.D. Primary Care Provider Qaunga Marcia Andres Unavailable [phone] Reason For Referral No Information Medications Medication SIG (Take, Route, Fr equency, Duration) Notes Start Date End Date Status Multivitamins 1 ORAL daily; Duration: -3 Juan Alberto-Chub[employer] Shorts 1 Active Vagifem 10 MCG 1 VAGINAL [...] Status Risk Notes Problem Postmenopausal atrophic vaginitis (93154963) Postmenopausal atrophic vaginitis (627.3) Active confirmed Diag Problem Gynecological examination normal (893450656330136) Routine gynecological examination (V72.31) Active confirmed Problem Screening for malignant neoplasm of cervix (094481342) Screening for malignant neoplasm of the cervix (V76.2) Active confirmed Diag Plan Of Treatment Pending Test Test Name Order Date MAMMOGRAM, SCREENING 10/21/2014 Insurance Providers Payer Name Payer Address Payer Phone Subscriber Number Group Number Insured Name Patient Relationship to Insured Coverage Start Date Coverage End Date [employer] [address] [place] [address] [phone] [id number] JENNIE GROVER Spouse - patient is the spouse of the insured Medical (General) History Medical History History ICD Code Postmenopausal atrophic vaginitis 627.3 Surgical History Surgery Date(Month/Year)
== END 2025-07-06 11:36 | disposition home or self-care (01) ==
LOC: HO.HMGCLDS 11:35
PROVIDERS: PCP Internal Medicine; Visit Provider Internal Medicine
DX: R30.0 Dysuria (principal)
CPT/HCPCS: 81001; 87086; 87088; 87186